=== PATIENT | female | born 1995 | race Caucasian/White ===

== ENCOUNTER 2016-09-12 20:29 | Emergency (ER) | payer MEDICAID ==
[2016-09-12 20:47] VITALS: BP 135/88
[2016-09-12] MEDS ORDERED: Sodium Chloride 0.9% 10 ML Syringe FLUSH PRN (21:48)
[2016-09-12] MEDS ORDERED: Sodium Chloride 0.9% 1,000 ML IV ONE (22:01)
--- NOTE | 2016-09-12 23:19 | EDM.PDOC ---
ED HPI GENERAL MEDICAL PROBLEM - General Chief Complaint: Abdominal Pain Stated Complaint: ABDOMINAL PAIN/POSS Time Seen by Provider: 09/12/16 21:23 Source of Information: Reports: Patient History Limitations: Reports: No Limitations - History of Present Illness INITIAL COMMENTS - FREE TEXT/NARRATIVE: 21-year-old female presents for evaluation treatment of abdominal pain. Patient reports that the abdominal pain started wednesday around 3pm. She states that there has been a constant pain since it started. She has trouble describing the pain. Reports it is an 8 out of 10 at its worst. Reports associated symptoms of nausea and a decreased appetite. She also reports that she struggles with constipation. Her last bowel movement was several hours prior to arrival in the ER. She states that it was hard to pass. No fevers, chills, vomiting, dysuria, hematuria, melena or hematochezia. Patient is also concerned that she is . She reports her last menstrual period was about one month ago. She states that she took 5 at home test. She had 2 positive urine test and 3 negative urine test. She is a . Her child is about 1-year-old. Patient states that she has a very irregular menstrual cycle. Abdomen Pain Score (Numeric/FACES): 5 - Related Data Allergies Allergy/AdvReac Type Severity Reaction Status Date / Time levetiracetam Allergy Intermediate Dizziness Verified 09/12/16 20:47 oxcarbazepine Allergy Cannot Verified 09/12/16 20:47 Remember Home Meds: Home Meds . 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 Denies: Fever GI/Abdominal: Reports: Abdominal Pain (across the upper abdomen radiating down) , Constipation, Nausea. Denies: Diarrhea, Hematochezia, Melena, Vomiting : Reports: No Symptoms, Irregular Menses. Denies: Dysuria, Hematuria ED EXAM, GI/ABD - Physical Exam Exam: See Below Exam Limited By: No Limitations General Appearance: Alert, WD/WN, No Apparent Distress Respiratory/Chest: No Respiratory Distress, Lungs Clear, Normal Breath Sounds Cardiovascular: Normal Peripheral Pulses, Regular Rate, Rhythm, No Murmur GI/Abdominal: Normal Bowel Sounds, Soft, Tenderness (generalized), Distention, Obturator Sign, Other (no pain with heel percussion). No: Guarding, Rebound, Rigidity, McBurney's Sign, Psoas Sign Neurological: Alert, Oriented, Normal Cognition Psychiatric: Normal Affect, Normal Mood Skin Exam: Warm, Dry, Normal Color Course - Vital Signs Last Recorded V/S: Last Vital Signs Temp 36.6 C 09/12/16 20:43 Pulse 109 H 09/12/16 20:43 Resp 16 09/12/16 20:43 BP 135/88 09/12/16 20:43 Pulse Ox 100 09/12/16 20:43 - Orders/Labs/Meds Labs: Laboratory Tests 09/12/16 09/12/16 09/12/16 Range/Units 20:45 20:45 22:06 WBC 11.33 H (3.98-10.04) K/mm3 RBC 5.12 (3.98-5.22) M/mm3 Hgb 13.9 (11.2-15.7) gm/L Hct 42.9 (34.1-44.9) % MCV 83.8 (79.4-94.8) fl MCH 27.1 (25.6-32.2) pg MCHC 32.4 (32.2-35.5) g/dl RDW Std Deviation 42.6 (36.4-46.3) fL Plt Count 354 (182-369) K/mm3 MPV 10.8 (9.4-12.3) fl Neutrophils % (Manual) 62 H (40-60) % Band Neutrophils % 0 (0-10) % Lymphocytes % (Manual) 27 (20-40) % Atypical Lymphs % 5 % Monocytes % (Manual) 6 (2-10) % Eosinophils % (Manual) 0 L (0.7-5.8) % Basophils % (Manual) 0 L (0.1-1.2) Platelet Estimate Adequate Plt Morphology Comment Normal Poikilocytosis 1+ slight Anisocytosis 1+ slight Tear Drop Cells 1+ slight RBC Morph Comment Abnormal Sodium (136-145) mEq/L Potassium (3.5-5.1) mEq/L Chloride (98-107) mEq/L Carbon Dioxide (21-32) mEq/L Anion Gap (5-15) BUN (7-18) mg/dL Creatinine (0.55-1.02) mg/dL Est Cr Clr Drug Dosing mL/min Estimated GFR (MDRD) (>60) mL/min BUN/Creatinine Ratio (14-18) Glucose (74-106) mg/dL Calcium (8.5-10.1) mg/dL Total Bilirubin (0.2-1.0) mg/dL AST (15-37) U/L ALT (14-59) U/L Alkaline Phosphatase (46-116) U/L C-Reactive Protein (<1.0) mg/dL Total Protein (6.4-8.2) g/dl Albumin (3.4-5.0) g/dl Globulin gm/dL Albumin/Globulin Ratio (1-2) Lipase (73-393) U/L HCG, Qual (NEGATIVE) Urine Color Yellow (Yellow) Urine Appearance Clear (Clear) Urine pH 5.5 (5.0-8.0) Ur Specific [place] > or = 1.030 (1.005-1.030) Urine Protein Negative (Negative) Urine Glucose (UA) Negative (Negative) Urine Ketones Negative (Negative) Urine Occult Blood 2+ H (Negative) Urine Nitrite Negative (Negative) Urine Bilirubin Negative (Negative) Urine Urobilinogen 0.2 (0.2-1.0) Ur Leukocyte Esterase Negative (Negative) Urine RBC 0-5 (0-5) /hpf Urine WBC 0-5 (0-5) /hpf Ur Epithelial Cells 10-20 H (0-5) /hpf Urine Bacteria Few (FEW) /hpf Urine Mucus Few (FEW) /hpf Urine HCG, Qual Negative (NEGATIVE) 09/12/16 09/12/16 Range/Units 22:06 22:06 WBC (3.98-10.04) K/mm3 RBC (3.98-5.22) M/mm3 Hgb (11.2-15.7) gm/L Hct (34.1-44.9) % MCV (79.4-94.8) fl MCH (25.6-32.2) pg MCHC (32.2-35.5) g/dl RDW Std Deviation (36.4-46.3) fL Plt Count (182-369) K/mm3 MPV (9.4-12.3) fl Neutrophils % (Manual) (40-60) % Band Neutrophils % (0-10) % Lymphocytes % (Manual) (20-40) % Atypical Lymphs % % Monocytes % (Manual) (2-10) % Eosinophils % (Manual) (0.7-5.8) % Basophils % (Manual) (0.1-1.2) Platelet Estimate Plt Morphology Comment Poikilocytosis Anisocytosis Tear Drop Cells RBC Morph Comment Sodium 141 (136-145) mEq/L Potassium 3.5 (3.5-5.1) mEq/L Chloride 105 (98-107) mEq/L Carbon Dioxide 29 (21-32) mEq/L Anion Gap 10.5 (5-15) BUN 11 (7-18) mg/dL Creatinine 0.9 (0.55-1.02) mg/dL Est Cr Clr Drug Dosing 88.97 mL/min Estimated GFR (MDRD) > 60 (>60) mL/min BUN/Creatinine Ratio 12.2 L (14-18) Glucose 83 (74-106) mg/dL Calcium 9.4 (8.5-10.1) mg/dL Total Bilirubin 0.3 (0.2-1.0) mg/dL AST 14 L (15-37) U/L ALT 20 (14-59) U/L Alkaline Phosphatase 81 (46-116) U/L C-Reactive Protein < 0.2 (<1.0) mg/dL Total Protein 8.4 H (6.4-8.2) g/dl Albumin 4.5 (3.4-5.0) g/dl Globulin 3.9 gm/dL Albumin/Globulin Ratio 1.2 (1-2) Lipase 94 (73-393) U/L HCG, Qual Negative (NEGATIVE) Urine Color (Yellow) Urine Appearance (Clear) Urine pH (5.0-8.0) Ur Specific [place] (1.005-1.030) Urine Protein (Negative) Urine Glucose (UA) (Negative) Urine Ketones (Negative) Urine Occult Blood (Negative) Urine Nitrite (Negative) Urine Bilirubin (Negative) Urine Urobilinogen (0.2-1.0) Ur Leukocyte Esterase (Negative) Urine RBC (0-5) /hpf Urine WBC (0-5) /hpf Ur Epithelial Cells (0-5) /hpf Urine Bacteria (FEW) /hpf Urine Mucus (FEW) /hpf Urine HCG, Qual (NEGATIVE) Meds: Medications Discontinued Medications Generic Name Dose Route Start Last Admin Trade Name Freq PRN Reason Stop Dose Admin Sodium Chloride 1,000 mls @ 999 mls/hr 09/12/16 22:01 09/12/16 22:26 Normal Saline IV 09/12/16 23:01 999 mls/hr ONETIME ONE Administration Ketorolac Tromethamine 30 mg 09/12/16 23:30 09/12/16 23:38 Toradol IVPUSH 09/12/16 23:31 30 mg ONETIME ONE Administration Ondansetron HCl 4 mg 09/12/16 23:30 09/12/16 23:37 Zofran IVPUSH 09/12/16 23:31 4 mg ONETIME ONE Administration Sodium Chloride 10 ml 09/12/16 21:48 09/12/16 22:27 Saline Flush FLUSH 10 ml ASDIRECTED PRN Administration Keep Vein Open - Radiology Interpretation Free Text/Narrative:: 1 view flat plate shows increased stool to the right colon. - Re-Assessments/Exams Free Text/Narrative Re-Assessment/Exam: 09/12/16 23:33 labs returned. Both urine and serum hcgs are negative wbc, mildly elevated at 11.33 with no bands, review of the patient's chart suggest she has a mildly elevated wbc chronically, hgb is 13.9 and plts are 359 CRP is <0.2 lipase is 94 sodium is 141, potassium is 3.5 and chloride is 105. anion gap is 10.5. glucos is 83 urine has 2+ blood I reviewed the labs and abdominal x-ray with the patient. Diagnoses likely is has constipation. Next The patient is laughing and appears quite comfortable Will discharge home with follow-up Discharge instructions as documented. Departure - Departure Time of Disposition: 23:36 Disposition: Home, Self-Care 01 Condition: Good Clinical Impression: Constipation - Discharge Information Instructions: Constipation, Adult, Swhi-wi-[id number] Referrals: La Ramirez PA-C [Primary Care Provider] - Zara Nguyễn DO [Physician] - Forms: ED Department Discharge Additional Instructions: Rest. make sure your are drinking plenty of fluids. [id number] Tylenol and Motrin as needed for pain relief. Recommend xsal-grg-[id number] MiraLAX daily or every other day for a normal soft bowel movements. He may also try magnesium citrate available in a 300 Ml bottle [id number]. Drink half the bottle over one hour. if you Do nothave a large bowel movement from half the bottle, may drink the second half about 12 hours later. Follow-up with your primary care provider this week for recheck of your symptoms. Call [phone] Nguyễn. Please return to the ER if your symptoms change or worsen.
[2016-09-12] MEDS ORDERED: Ketorolac 30 MG/ML SDV IVPUSH ONE (23:30)
[2016-09-12] MEDS ORDERED: Ondansetron 4 MG/2 ML SDV IVPUSH ONE (23:30)
--- NOTE | 2016-09-13 15:19 | CR ---
Abdomen: Supine view of the abdomen was obtained. Comparison: Previous abdominal x-ray of 11/18/11. Bony structures are within normal limits. Bowel gas pattern is normal. No abnormal calcifications or soft tissue abnormality is seen. Impression: 1. No abnormality is seen on supine abdominal x-ray. Diagnostic code #1
== END 2016-09-12 23:55 | disposition home or self-care (01) ==
LOC: JD.ED 20:29
DX: K59.00 Constipation, unspecified (principal); F17.210 Nicotine dependence, cigarettes, uncomplicated; Z88.8 Allergy status to other drugs, medicaments and biological substances; Z98.890 Other specified postprocedural states
CPT/HCPCS: 36415; 74000; 80053; 81001; 81025; 83690; 84703; 85025; 86140; 96361; 96374; 96375; 99284; J1885; J2405; J7040; J7050

== ENCOUNTER 2017-07-22 17:54 | Emergency (ER) | payer MEDICAID ==
[2017-07-22 18:18] VITALS: BP 109/72
[2017-07-22] MEDS ORDERED: Sodium Chloride 0.9% 10 ML Syringe FLUSH PRN (18:35)
[2017-07-22] MEDS ORDERED: Ketorolac 30 MG/ML SDV IVPUSH ONE (18:37)
[2017-07-22] MEDS ORDERED: Sodium Chloride 0.9% 1,000 ML IV ONE ×2 (18:37→21:19)
[2017-07-22] MEDS ORDERED: Ondansetron 4 MG/2 ML SDV IVPUSH ONE (21:19)
[2017-07-22] MEDS ORDERED: HYDROmorphone 0.5 MG/0.5 ML SYRINGE IVPUSH ONE (22:33)
--- NOTE | 2017-07-22 22:52 | EDM.PDOC ---
ED HPI GENERAL MEDICAL PROBLEM - General Chief Complaint: Abdominal Pain Stated Complaint: ABDOMAIN PAIN Time Seen by Provider: 07/22/17 18:51 Source of Information: Reports: Patient History Limitations: Reports: No Limitations - History of Present Illness INITIAL COMMENTS - FREE TEXT/NARRATIVE: 22-year-old female presents for evaluation and treatment of several different complaints. Patient reports pain to the bilateral thighs. States that this started 3-4 days ago. Reports associated weakness. No numbness or tingling to the legs. No pain or weakness to the lower legs. Patient reports that she was in softball last night. Her symptoms seemed to start prior that. Patient states when she was running the bases last night she became lightheaded and dizzy. No syncope. Patient is also complaining of pain Right flank. She states that it radiates into her back. Reports associated symptoms of nausea but no vomiting. She has not had any fevers. No dysuria. Reports increased urinary frequency. No hematuria Previous abdominal surgeries include a . Patient has been seen in the ER previously for constipation. Reports that her last bowel move yesterday. LMP was a few days ago. 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 Denies: Abdominal Pain, Vomiting : Reports: Flank Pain (Right), Frequency. Denies: Dysuria, Hematuria Musculoskeletal: Reports: Leg Pain (Bilateral thighs) Neurological: Reports: Difficulty Walking, Weakness. Denies: Numbness, Syncope , Tingling ED EXAM, RENAL/ - Physical Exam Exam: See Below Exam Limited By: No Limitations General Appearance: Alert, WD/WN, No Apparent Distress Respiratory/Chest: No Respiratory Distress, Lungs Clear, Normal Breath Sounds Cardiovascular: Normal Peripheral Pulses, Regular Rate, Rhythm, No Murmur GI/Abdominal: Normal Bowel Sounds, Soft, Non-Tender Back Exam: No: CVA Tenderness (L), CVA Tenderness (R) Extremities: Other (Reports tenderness to palpation to the bilateral thighs no obvious deformities.) Neurological: Alert, Oriented, Normal Cognition Psychiatric: Normal Affect, Normal Mood Skin Exam: Warm, Dry, Normal Color Course - Vital Signs Last Recorded V/S: Last Vital Signs Temp 36.9 C 07/22/17 18:16 Pulse 91 07/22/17 18:16 Resp 20 07/22/17 18:16 BP 109/72 07/22/17 18:16 Pulse Ox 100 07/22/17 18:16 Orthostatic Blood Pressure [ 106/78 Standing] Orthostatic Blood Pressure [ 100/75 Sitting] Orthostatic Blood Pressure [ 108/72 Supine] - Orders/Labs/Meds Orders: Active Orders 24 hr Category Date Time Status Orthostatic Vital Signs [RC] ASDIRECTED Care 07/22/17 18:35 Active Peripheral IV Care [RC] . DIRECTED Care 07/22/17 18:36 Active HCG QUALITATIVE,URINE [URCHEM] Stat Lab 07/22/17 19:00 Ordered UA W/MICROSCOPIC [URIN] Stat Lab 07/22/17 19:00 Ordered Peripheral IV Insertion Adult [OM.PC] Routine Oth 07/22/17 18:35 Ordered Labs: Laboratory Tests 07/22/17 07/22/17 07/22/17 Range/Units 18:45 18:45 18:45 WBC 12.16 H (3.98-10.04) K/mm3 RBC 5.07 (3.98-5.22) M/mm3 Hgb 14.1 (11.2-15.7) gm/L Hct 43.0 (34.1-44.9) % MCV 84.8 (79.4-94.8) fl MCH 27.8 (25.6-32.2) pg MCHC 32.8 (32.2-35.5) g/dl RDW Std Deviation 41.9 (36.4-46.3) fL Plt Count 387 H (182-369) K/mm3 MPV 10.6 (9.4-12.3) fl Neut % (Auto) 59.5 (34.0-71.1) % Lymph % (Auto) 33.4 (19.3-51.7) % Early % (Auto) 5.8 (4.7-12.5) % Eos % (Auto) 0.7 (0.7-5.8) Baso % (Auto) 0.4 (0.1-1.2) % Neut # (Auto) 7.23 H (1.56-6.13) K/mm3 Lymph # (Auto) 4.06 H (1.18-3.74) K/mm3 Early # (Auto) 0.70 H (0.24-0.36) K/mm3 Eos # (Auto) 0.09 (0.04-0.36) K/mm3 Baso # (Auto) 0.05 (0.01-0.08) K/mm3 Sodium 140 (136-145) mEq/L Potassium 3.6 (3.5-5.1) mEq/L Chloride 103 (98-107) mEq/L Carbon Dioxide 28 (21-32) mEq/L Anion Gap 12.6 (5-15) BUN 12 (7-18) mg/dL Creatinine 1.0 (0.55-1.02) mg/dL Est Cr Clr Drug Dosing 79.40 mL/min Estimated GFR (MDRD) > 60 (>60) mL/min BUN/Creatinine Ratio 12.0 L (14-18) Glucose 80 (74-106) mg/dL Calcium 9.3 (8.5-10.1) mg/dL Total Bilirubin 0.5 (0.2-1.0) mg/dL AST 111 H (15-37) U/L ALT 58 (14-59) U/L Alkaline Phosphatase 88 (46-116) U/L Creatine Kinase 4438 H (26-192) U/L C-Reactive Protein (<1.0) mg/dL Total Protein 8.6 H (6.4-8.2) g/dl Albumin 4.5 (3.4-5.0) g/dl Globulin 4.1 gm/dL Albumin/Globulin Ratio 1.1 (1-2) Lipase 71 L (73-393) U/L Urine Color (Yellow) Urine Appearance (Clear) Urine pH (5.0-8.0) Ur Specific [place] (1.005-1.030) Urine Protein (Negative) Urine Glucose (UA) (Negative) Urine Ketones (Negative) Urine Occult Blood (Negative) Urine Nitrite (Negative) Urine Bilirubin (Negative) Urine Urobilinogen (0.2-1.0) Ur Leukocyte Esterase (Negative) Urine RBC (0-5) /hpf Urine WBC (0-5) /hpf Ur Epithelial Cells (0-5) /hpf Urine Bacteria (FEW) /hpf Urine Mucus (FEW) /hpf Urine HCG, Qual (NEGATIVE) 07/22/17 07/22/17 07/22/17 Range/Units 18:45 19:00 19:00 WBC (3.98-10.04) K/mm3 RBC (3.98-5.22) M/mm3 Hgb (11.2-15.7) gm/L Hct (34.1-44.9) % MCV (79.4-94.8) fl MCH (25.6-32.2) pg MCHC (32.2-35.5) g/dl RDW Std Deviation (36.4-46.3) fL Plt Count (182-369) K/mm3 MPV (9.4-12.3) fl Neut % (Auto) (34.0-71.1) % Lymph % (Auto) (19.3-51.7) % Early % (Auto) (4.7-12.5) % Eos % (Auto) (0.7-5.8) Baso % (Auto) (0.1-1.2) % Neut # (Auto) (1.56-6.13) K/mm3 Lymph # (Auto) (1.18-3.74) K/mm3 Early # (Auto) (0.24-0.36) K/mm3 Eos # (Auto) (0.04-0.36) K/mm3 Baso # (Auto) (0.01-0.08) K/mm3 Sodium (136-145) mEq/L Potassium (3.5-5.1) mEq/L Chloride (98-107) mEq/L Carbon Dioxide (21-32) mEq/L Anion Gap (5-15) BUN (7-18) mg/dL Creatinine (0.55-1.02) mg/dL Est Cr Clr Drug Dosing mL/min Estimated GFR (MDRD) (>60) mL/min BUN/Creatinine Ratio (14-18) Glucose (74-106) mg/dL Calcium (8.5-10.1) mg/dL Total Bilirubin (0.2-1.0) mg/dL AST (15-37) U/L ALT (14-59) U/L Alkaline Phosphatase (46-116) U/L Creatine Kinase (26-192) U/L C-Reactive Protein < 0.2 (<1.0) mg/dL Total Protein (6.4-8.2) g/dl Albumin (3.4-5.0) g/dl Globulin gm/dL Albumin/Globulin Ratio (1-2) Lipase (73-393) U/L Urine Color Yellow (Yellow) Urine Appearance Clear (Clear) Urine pH 7.5 (5.0-8.0) Ur Specific [place] 1.020 (1.005-1.030) Urine Protein Negative (Negative) Urine Glucose (UA) Negative (Negative) Urine Ketones Negative (Negative) Urine Occult Blood 2+ H (Negative) Urine Nitrite Negative (Negative) Urine Bilirubin Negative (Negative) Urine Urobilinogen 0.2 (0.2-1.0) Ur Leukocyte Esterase Negative (Negative) Urine RBC 0-5 (0-5) /hpf Urine WBC 5-10 H (0-5) /hpf Ur Epithelial Cells 10-20 H (0-5) /hpf Urine Bacteria Few (FEW) /hpf Urine Mucus Not seen (FEW) /hpf Urine HCG, Qual Negative (NEGATIVE) Meds: Medications Discontinued Medications Generic Name Dose Route Start Last Admin Trade Name Freq PRN Reason Stop Dose Admin Hydromorphone HCl 0.5 mg 07/22/17 22:33 07/22/17 23:09 Dilaudid IVPUSH 07/22/17 22:34 0.5 mg ONETIME ONE Administration Sodium Chloride 1,000 mls @ 999 mls/hr 07/22/17 18:37 07/22/17 18:45 Normal Saline IV 07/22/17 19:37 999 mls/hr ONETIME ONE Administration Sodium Chloride 1,000 mls @ 999 mls/hr 07/22/17 21:19 07/22/17 21:26 Normal Saline IV 07/22/17 22:19 999 mls/hr ONETIME ONE Administration Ketorolac Tromethamine 30 mg 07/22/17 18:37 07/22/17 18:45 Toradol IVPUSH 07/22/17 18:38 30 mg ONETIME ONE Administration Ondansetron HCl 4 mg 07/22/17 21:19 07/22/17 21:26 Zofran IVPUSH 07/22/17 21:20 4 mg ONETIME ONE Administration Sodium Chloride 10 ml 07/22/17 18:35 07/22/17 18:45 Saline Flush FLUSH 10 ml ASDIRECTED PRN Administration Keep Vein Open - Radiology Interpretation Free Text/Narrative:: CT of the abdomen and pelvis without contrast impression per vrad: Normal abdomen and pelvis CT. CT Results Date: 07/23/17 - Re-Assessments/Exams Free Text/Narrative Re-Assessment/Exam: 07/23/17 00:44 Patient reported no pain relief with the Toradol. I order some Dilaudid which seemed to improve her pain somewhat made her rather loopy. When I went to initially discharge the patient she was complaining more of flank pain. Initially attributed this To the rhabdo. However, is possible that she does have a kidney stone. When ahead and CTed the patient. No stone appreciated. Appendix not show any signs of appendicitis. Gallbladder do not show any gallstones. There are amount of stool appreciated on the right side of the colon. Abdominal pain likely from constipation. I Do not feel that she needs to be admitted that she does need close follow-up and needs to push her fluids. I will give her something for her pain in the meantime. She is to follow up in clinic early next week to have her levels including kidney function and creatinine kinase rechecked. Discharge instructions as documented. Departure - Departure Time of Disposition: 00:49 Disposition: Home, Self-Care 01 Condition: Fair Clinical Impression: Abdominal pain, Constipation, Rhabdomyolysis - Discharge Information Instructions: Rhabdomyolysis, Constipation, Adult, [id number] Referrals: PCP,None [Primary Care Provider] - Fina Bell, COMPLIANCE PROFESSIONAL [Nurse Practitioner] - Forms: ED Department Discharge Additional Instructions: percocet 5-325 tabs 1-2 tabs PO every 4-6 hours prn pain make sure you are drinking plenty of fluids. Drink Gatorade, water or Powerade. Cjov-[id number] Tylenol or Motrin seen for pain relief. For pain not relieved by Tylenol or Motrin you may take Percocet 1 or 2 tabs every 4-6 hours. Percocet is habit-forming, take as few these as needed to control your pain. Do not drive or operate machinery within 12 hours of receiving prescription narcotic pain medication. you were given medication in the ER that can affect your ability drive and operate machinery. Do not drive or operate machinery within 12 hours of taking perception narcotic pain medication. Follow up with family medicine later this week or early next week for recheck of your symptoms. you should have your creatinine kinase and your kidney function rechecked. Recommend using MiraLAX daily, this is available [id number]. This will help with the constipation lucy while on narcotics. Also consider starting a probiotic, these are available OTC. Please return to the ER if your symptoms change or worsen. - My Orders Last 24 Hours: My Active Orders 07/22/17 18:35 Orthostatic Vital Signs [RC] ASDIRECTED Peripheral IV Insertion Adult [OM.PC] Routine 07/22/17 18:36 Peripheral IV Care [RC] . DIRECTED 07/22/17 19:00 HCG QUALITATIVE,URINE [URCHEM] Stat UA W/MICROSCOPIC [URIN] Stat - Assessment/Plan Last 24 Hours: My Active Orders 07/22/17 18:35 Orthostatic Vital Signs [RC] ASDIRECTED Peripheral IV Insertion Adult [OM.PC] Routine 07/22/17 18:36 Peripheral IV Care [RC] . DIRECTED 07/22/17 19:00 HCG QUALITATIVE,URINE [URCHEM] Stat UA W/MICROSCOPIC [URIN] Stat
--- NOTE | 2017-07-23 09:23 | CT ---
CT abdomen and pelvis Technique: Multiple axial sections were obtained from above the dome of the diaphragm inferiorly to the pubic symphysis. Intravenous and oral contrast was not utilized. Study has been performed as a ureteral stone protocol. Comparison: Prior CT abdomen and pelvis study of 09/15/13 is available for comparison. Findings: Kidneys show no abnormal calcifications. No ureteral dilatation is seen. No abnormal calcifications are seen along the course of the ureters. Minimal atelectasis seen within both lung bases. Noncontrast appearance of the liver and spleen appears within normal limits. Adrenal glands show no discrete nodule. Pancreas is within normal limits. Gallbladder contains no calcified gallstones. Aorta shows no aneurysmal dilatation. No retroperitoneal adenopathy is seen. Appendix is seen which appears within normal limits. No pelvic mass or adenopathy is seen. No free fluid or inflammatory change is seen. Bone window settings were reviewed which appear within normal limits for the patient's age. Impression: 1. No renal calculi, ureteral dilatation or ureteral stone is seen. 2. Nothing acute is appreciated on noncontrast CT study of the abdomen and pelvis performed as a ureteral stone protocol. Diagnostic code #1 I agree with preliminary report from [facility], finalized at 07/23/17, 1:36 AM Central Time
== END 2017-07-23 01:00 | disposition home or self-care (01) ==
LOC: JD.ED 17:54
DX: K59.00 Constipation, unspecified (principal); M62.82 Rhabdomyolysis; F17.210 Nicotine dependence, cigarettes, uncomplicated; Z88.8 Allergy status to other drugs, medicaments and biological substances
CPT/HCPCS: 36415; 74176; 80053; 81001; 81025; 82550; 83690; 85025; 86140; 96361; 96374; 96375; 99284; J1170; J1885; J2405; J7040; J7050

== ENCOUNTER 2019-07-15 10:53 | Emergency (ER) | payer MEDICAID ==
[2019-07-15 11:06] VITALS: BP 126/88; PULSE 111
[2019-07-15] MEDS ORDERED: HYDROmorphone 1 MG/ML Syringe IVPUSH STA (11:22)
[2019-07-15] MEDS ORDERED: Ondansetron 4 MG/2 ML SDV IVPUSH ONE (11:22)
--- NOTE | 2019-07-15 11:29 | EDM.PDOC ---
ED HPI GENERAL MEDICAL PROBLEM - General Chief Complaint: Abdominal Pain Stated Complaint: ADBOMAIL PAIN Time Seen by Provider: 07/15/19 11:06 Source of Information: Reports: Patient, RN Notes Reviewed History Limitations: Reports: No Limitations - History of Present Illness INITIAL COMMENTS - FREE TEXT/NARRATIVE: Patient is a 24-year-old female who presents to the ED for the evaluation of her lower abdominal pain. Patient states that she has been having lower abdominal pain over the last 2 weeks, but the pain is mostly on the right lower quadrant, and states that she does have a history of ovarian cyst so she thought this was the case. She states however the pain is been increasing, and she cannot lay on her stomach while sleeping, and she states that the pain did radiate up into her chest today. She does complain of some generalized abdomen tenderness, but it is much worse in the right lower quadrant. Patient states that she could not bend or do much for activities yesterday as the pain was too intense. She is complaining of this being a sharp/stabbing pain, that is constant in nature and worsens with movement. Patient notes she is having little bit of nausea and lightheadedness, also she states that the thought of food makes her nauseous, but she denies any fever/chills, vomiting or diarrhea. Her last regular bowel movement was yesterday. She believes her last menstrual period was around July 03 or . She does not believe she could be as she has had a negative test since her last menses. Patient did not take any sort of pain medications at home for this. She notes that her father has a history of gallstones, the patient herself has had C- sections but denies any other sort of abdomen surgeries. She further notes a history of seizures that she had when she was younger, but she is not medicated for this at this time and has not had a seizure in over 10 years. She has no primary care provider, she is not on any regular medications. She denies alcohol or drug use, but does smoke cigarettes, and has been smoking about 1/4 pack a day for the last 7 years. - Related Data Allergies Allergy/AdvReac Type Severity Reaction Status Date / Time levetiracetam Allergy Intermediate Dizziness Verified 07/15/19 11:07 oxcarbazepine Allergy Cannot Verified 07/15/19 11:07 Remember Home Meds: Home Meds Ondansetron [Zofran ODT] 4 mg PO Q8H PRN #12 tab.dis 07/15/19 [Rx] predniSONE 20 mg PO ASDIRECTED #15 tab 07/15/19 [Rx] Past Medical History [employer] History: Reports: , Other (See Below) Other [employer] History: Ovarian cysts w/ rupture in 2019. Neurological History: Reports: Seizure Other Neuro History: off medication since 2009 Psychiatric History: Reports: Anxiety - Infectious Disease History Infectious Disease History: Reports: Chicken Pox, Human Papilloma Virus (HPV) - Past Surgical History HEENT Surgical History: Reports: Tonsillectomy Female Surgical History: Reports: Section Social & Family History - Family History Family Medical History: Noncontributory - Tobacco Use Smoking Status *Q: Light Tobacco Smoker Tobacco Use Within Last Twelve Months: Cigarettes Years of Tobacco use: 7 Packs/Tins Daily: 0.2 (1/4 pack /day) - Caffeine Use Caffeine Use: Reports: Coffee - Alcohol Use Alcohol Use History: No - Recreational Drug Use Recreational Drug Use: No - Sexual History Sexual History: Reports: Sexually Active ED ROS GENERAL - Review of Systems Review Of Systems: Comprehensive ROS is negative, except as noted in HPI. ED EXAM, GI/ABD - Physical Exam Exam: See Below Exam Limited By: No Limitations General Appearance: Alert, WD/WN, No Apparent Distress Eyes: Bilateral: Normal Appearance Ears: Normal External Exam Nose: Normal Inspection Throat/Mouth: Normal Inspection, Normal Lips, Normal Teeth, Normal Gums, Normal Oropharynx, Normal Voice, No Airway Compromise Head: Atraumatic, Normocephalic Neck: Normal Inspection Respiratory/Chest: No Respiratory Distress, Lungs Clear, Normal Breath Sounds, No Accessory Muscle Use, Chest Non-Tender Cardiovascular: Normal Peripheral Pulses, Regular Rate, Rhythm, No Murmur GI/Abdominal Exam: Normal Bowel Sounds, Soft, No Distention, No Mass, Tender ( generalized, but worse over RLQ mainly, McBurney is positive, and does have some rebound associated) (Female) Exam: Deferred Extremities: Normal Inspection, Normal Capillary Refill Neurological: Alert, Oriented, Normal Cognition, No Motor/Sensory Deficits Psychiatric: Normal Affect, Normal Mood Skin Exam: Warm, Dry, Intact, Normal Color, No Rash Course - Vital Signs Last Recorded V/S: Last Vital Signs Temp 97.5 F 07/15/19 11:03 Pulse 111 H 07/15/19 11:03 Resp 16 07/15/19 11:03 BP 126/88 07/15/19 11:03 Pulse Ox 99 07/15/19 11:03 - Orders/Labs/Meds Orders: Active Orders 24 hr Category Date Time Status Abdomen Pelvis w Cont [CT] Stat Exams 07/15/19 13:02 Ordered Sodium Chloride 0.9% [Normal Saline] 1,000 ml Med 07/15/19 11:30 Ordered IV ASDIRECTED Sodium Chloride 0.9% [Saline Flush] Med 07/15/19 13:55 Active 10 ml FLUSH ONETIME PRN Medication Orders Sodium Chloride (Normal Saline) 1,000 mls @ 500 mls/hr IV ASDIRECTED MICHAEL Last Admin: 07/15/19 11:37 Dose: 500 mls/hr Sodium Chloride (Saline Flush) 10 ml FLUSH ONETIME PRN PRN Reason: Keep Vein Open Last Admin: 07/15/19 14:05 Dose: 10 ml Labs: Laboratory Tests 07/15/19 07/15/19 07/15/19 Range/Units 11:24 11:24 11:40 WBC 7.37 (3.98-10.04) K/mm3 RBC 5.04 (3.98-5.22) M/mm3 Hgb 14.2 (11.2-15.7) gm/dl Hct 44.1 (34.1-44.9) % MCV 87.5 (79.4-94.8) fl MCH 28.2 (25.6-32.2) pg MCHC 32.2 (32.2-35.5) g/dl RDW Std Deviation 44.0 (36.4-46.3) fL Plt Count 367 (182-369) K/mm3 MPV 10.7 (9.4-12.3) fl Neutrophils % (Manual) 66 H (40-60) % Band Neutrophils % 0 (0-10) % Lymphocytes % (Manual) 31 (20-40) % Atypical Lymphs % 0 % Monocytes % (Manual) 0 L (2-10) % Eosinophils % (Manual) 3 (0.7-5.8) % Basophils % (Manual) 0 L (0.1-1.2) Platelet Estimate Adequate Plt Morphology Comment Normal RBC Morph Comment Normal Sodium (136-145) mEq/L Potassium (3.5-5.1) mEq/L Chloride (98-107) mEq/L Carbon Dioxide (21-32) mEq/L Anion Gap (5-15) BUN (7-18) mg/dL Creatinine (0.55-1.02) mg/dL Est Cr Clr Drug Dosing mL/min Estimated GFR (MDRD) (>60) mL/min BUN/Creatinine Ratio (14-18) Glucose (74-106) mg/dL Calcium (8.5-10.1) mg/dL Total Bilirubin (0.2-1.0) mg/dL AST (15-37) U/L ALT (14-59) U/L Alkaline Phosphatase (46-116) U/L Total Protein (6.4-8.2) g/dl Albumin (3.4-5.0) g/dl Globulin gm/dL Albumin/Globulin Ratio (1-2) Urine Color Yellow (Yellow) Urine Appearance Clear (Clear) Urine pH 7.5 (5.0-8.0) Ur Specific [place] 1.020 (1.005-1.030) Urine Protein Trace H (Negative) Urine Glucose (UA) Negative (Negative) Urine Ketones Negative (Negative) Urine Occult Blood Negative (Negative) Urine Nitrite Negative (Negative) Urine Bilirubin Negative (Negative) Urine Urobilinogen 0.2 (0.2-1.0) Ur Leukocyte Esterase Negative (Negative) Urine RBC 0-5 (0-5) /hpf Urine WBC 0-5 (0-5) /hpf Ur Epithelial Cells 0-5 (0-5) /hpf Amorphous Sediment Moderate H (NOT SEEN) /hpf Urine Bacteria Few (FEW) /hpf Urine Mucus Not seen (FEW) /hpf Urine HCG, Qual Negative (NEGATIVE) 07/15/19 Range/Units 11:40 WBC (3.98-10.04) K/mm3 RBC (3.98-5.22) M/mm3 Hgb (11.2-15.7) gm/dl Hct (34.1-44.9) % MCV (79.4-94.8) fl MCH (25.6-32.2) pg MCHC (32.2-35.5) g/dl RDW Std Deviation (36.4-46.3) fL Plt Count (182-369) K/mm3 MPV (9.4-12.3) fl Neutrophils % (Manual) (40-60) % Band Neutrophils % (0-10) % Lymphocytes % (Manual) (20-40) % Atypical Lymphs % % Monocytes % (Manual) (2-10) % Eosinophils % (Manual) (0.7-5.8) % Basophils % (Manual) (0.1-1.2) Platelet Estimate Plt Morphology Comment RBC Morph Comment Sodium 143 (136-145) mEq/L Potassium 3.8 (3.5-5.1) mEq/L Chloride 106 (98-107) mEq/L Carbon Dioxide 29 (21-32) mEq/L Anion Gap 11.8 (5-15) BUN 10 (7-18) mg/dL Creatinine 0.9 (0.55-1.02) mg/dL Est Cr Clr Drug Dosing 86.73 mL/min Estimated GFR (MDRD) > 60 (>60) mL/min BUN/Creatinine Ratio 11.1 L (14-18) Glucose 115 H (74-106) mg/dL Calcium 9.0 (8.5-10.1) mg/dL Total Bilirubin 0.2 (0.2-1.0) mg/dL AST 13 L (15-37) U/L ALT 25 (14-59) U/L Alkaline Phosphatase 66 (46-116) U/L Total Protein 7.3 (6.4-8.2) g/dl Albumin 3.7 (3.4-5.0) g/dl Globulin 3.6 gm/dL Albumin/Globulin Ratio 1.0 (1-2) Urine Color (Yellow) Urine Appearance (Clear) Urine pH (5.0-8.0) Ur Specific [place] (1.005-1.030) Urine Protein (Negative) Urine Glucose (UA) (Negative) Urine Ketones (Negative) Urine Occult Blood (Negative) Urine Nitrite (Negative) Urine Bilirubin (Negative) Urine Urobilinogen (0.2-1.0) Ur Leukocyte Esterase (Negative) Urine RBC (0-5) /hpf Urine WBC (0-5) /hpf Ur Epithelial Cells (0-5) /hpf Amorphous Sediment (NOT SEEN) /hpf Urine Bacteria (FEW) /hpf Urine Mucus (FEW) /hpf Urine HCG, Qual (NEGATIVE) Meds: Medications Generic Name Dose Route Start Last Admin Trade Name Freq PRN Reason Stop Dose Admin Sodium Chloride 1,000 mls @ 500 mls/hr 07/15/19 11:30 07/15/19 11:37 Normal Saline IV 500 mls/hr ASDIRECTED MICHAEL Administration Sodium Chloride 10 ml 07/15/19 13:55 07/15/19 14:05 Saline Flush FLUSH 10 ml ONETIME PRN Administration Keep Vein Open Discontinued Medications Generic Name Dose Route Start Last Admin Trade Name Freq PRN Reason Stop Dose Admin Hydromorphone HCl 1 mg 07/15/19 11:22 07/15/19 11:36 Dilaudid IVPUSH 07/15/19 11:23 1 mg ONETIME STA Administration Iopamidol 100 ml 07/15/19 13:55 07/15/19 14:05 Isovue-300 (61%) IVPUSH 07/15/19 13:56 100 ml ONETIME ONE Administration Ondansetron HCl 4 mg 07/15/19 11:22 07/15/19 11:36 Zofran IVPUSH 07/15/19 11:23 4 mg ONETIME ONE Administration - Re-Assessments/Exams Free Text/Narrative Re-Assessment/Exam: 07/15/19 11:31 Patient presents to the ED for the evaluation of her abdominal pain. Have ordered some basic labs, Zofran for nausea, Dilaudid for pain management, and an abdomen ultrasound for initial investigation of the patient's abdomen pain if she would like to try to limit radiation exposure as much as possible. She does have a history of ovarian cysts I think this is amenable at initial exam. She is not in any obvious distress or does not appear to be toxic looking. 07/15/19 13:03 Patient's abdomen ultrasound is back, right ovary appears within normal limits, and the appendix is not definitely visualized. There is no other free fluid seen. I have went over the results with the patient, and she would like to go forward with a abdomen pelvis CT at this time to rule out appendicitis. 07/15/19 14:34 The patient appendix was well seen on the CT and is well within normal limits. There is no sign of an ovarian cyst. But there is possible mild mesenteric adenitis reported. Departure - Departure Time of Disposition: 14:40 Disposition: Home, Self-Care 01 Condition: Good Clinical Impression: Mesenteric adenitis - Discharge Information *PRESCRIPTION DRUG MONITORING PROGRAM REVIEWED*: No *COPY OF PRESCRIPTION DRUG MONITORING REPORT IN PATIENT BÁRBARA: No Instructions: Mesenteric Adenitis, Adult Referrals: PCP,None [Primary Care Provider] - Forms: ED Department Discharge Additional Instructions: You were evaluated in the ER today regarding your right lower quadrant abdominal pain. You had an abdominal ultrasound and an abdominal CT done, you do not have appendicitis or any ovarian cysts at today's visit, rather you are suffering from mesenteric adenitis, which is an inflammation of the lymph nodes in your right lower quadrant, that mimics the feelings of appendicitis quite well. As stated above this is an inflammatory response, and you will need to take some sort of anti-inflammatory for management of this. You have been provided with a prescription for prednisone, which is an anti-inflammatory or steroid. Please take as directed for the full course. All of your other laboratory evaluation seems to be within normal limits. You will also be given a prescription for Zofran for your mild nausea that you reported. Please try to increase your oral fluid intake as much as possible over the next few days, get some rest and you should feel better soon. Please return to the ER at any time if symptoms change or worsen. Sepsis Event Note - Evaluation Sepsis Screening Result: No Definite Risk - Focused Exam Vital Signs: Vital Signs Temp Pulse Resp BP Pulse Ox 07/15/19 11:03 97.5 F 111 H 16 126/88 99 Date Exam was Performed: 07/15/19 Time Exam was Performed: 14:40 - My Orders Last 24 Hours: My Active Orders 07/15/19 11:30 Sodium Chloride 0.9% [Normal Saline] 1,000 ml IV ASDIRECTED 07/15/19 13:02 Abdomen Pelvis w Cont [CT] Stat 07/15/19 13:55 Sodium Chloride 0.9% [Saline Flush] 10 ml FLUSH ONETIME PRN - Assessment/Plan Last 24 Hours: My Active Orders 07/15/19 11:30 Sodium Chloride 0.9% [Normal Saline] 1,000 ml IV ASDIRECTED 07/15/19 13:02 Abdomen Pelvis w Cont [CT] Stat 07/15/19 13:55 Sodium Chloride 0.9% [Saline Flush] 10 ml FLUSH ONETIME PRN
[2019-07-15] MEDS ORDERED: Sodium Chloride 0.9% 1,000 ML IV SCH (11:30)
--- NOTE | 2019-07-15 12:57 | US ---
Limited abdominal ultrasound: Multiple real-time images were obtained of the right lower abdomen. Right ovary appears within normal limits. Appendix is not definitely visualized. No free fluid is seen. Impression: 1. Findings as noted above. Diagnostic code #1 This report was dictated in MDT
[2019-07-15] MEDS ORDERED: Sodium Chloride 0.9% 10 ML Syringe FLUSH PRN (13:55)
[2019-07-15] MEDS ORDERED: Iopamidol 612 MG/ML 100 ML Bottle IVPUSH ONE (13:55)
--- NOTE | 2019-07-15 16:03 | CT ---
CT abdomen and pelvis Technique: Multiple axial sections were obtained from above the dome of the diaphragm inferiorly through the pubic symphysis. Intravenous contrast was utilized. No oral contrast has been given. Comparison: Prior right upper quadrant abdominal ultrasound performed earlier on the same day (12:22 PM) and previous CT abdomen and pelvis study of 12/17/17. Findings: Visualized lung bases show nothing acute. Liver contains no focal parenchymal abnormality. Spleen appears normal limits. Adrenal glands show no nodule. Kidneys show symmetric contrast enhancement without hydronephrosis or mass. Pancreas appears normal. Gallbladder contains no calcified gallstones. Aorta shows no aneurysm. No retroperitoneal adenopathy is seen. Stable lymph nodes are noted within the right lower mesentery. Appendix is seen which is normal in size. No pelvic mass or adenopathy is seen. Delayed images shows contrast within the distal ureters and within the bladder. Bone window settings were reviewed which appear within normal limits for the patient's age. Impression: 1. Small mesenteric lymph nodes within the right lower abdomen which are similar to prior CT exam. 2. Appendix is seen which is normal. 3. Other portions of the CT exam of the abdomen and pelvis show nothing acute. Diagnostic code #2 This report was dictated in MDT I agree with preliminary report from [facility], finalized on 07/15/19, 3:24 PM Central Daylight Time
== END 2019-07-15 14:56 | disposition home or self-care (01) ==
LOC: JD.ED 10:53
DX: I88.0 Nonspecific mesenteric lymphadenitis (principal); F17.210 Nicotine dependence, cigarettes, uncomplicated; Z88.8 Allergy status to other drugs, medicaments and biological substances
CPT/HCPCS: 36415; 74177; 76705; 80053; 81001; 81025; 85007; 85027; 96374; 96375; 99284; J1170; J2405; J7030; Q9967; 99283

== ENCOUNTER 2019-09-23 14:04 | Emergency (ER) | payer MEDICAID ==
[2019-09-23 14:28] VITALS: BP 109/65; PULSE 78
--- NOTE | 2019-09-23 18:26 | US ---
1st trimester obstetrical ultrasound: Multiple real-time images were obtained transvaginally. Comparison: No previous study. Findings: Small gestational sac is seen which shows no pole or yolk sac at this time. Minimal subchorionic hemorrhage noted. Ovaries are seen. No discrete cyst or solid abnormality is appreciated. No free fluid is seen. Measurements: Gestational sac: 1.12 cm - 5 weeks 2 days Impression: 1. Single intrauterine gestational sac. No pole or yolk sac is seen. 2. No additional abnormality is appreciated. Note: Recommend follow-up study in 11 days to confirm normal developing . Diagnostic code #2 This report was dictated in MDT
--- NOTE | 2019-09-23 18:30 | US ---
Limited abdominal ultrasound: Multiple real-time images of the right lower abdomen were obtained. Comparison: Previous right lower quadrant abdominal ultrasound of . Nonspecific bowel is seen within the right lower abdomen. This does not appear to represent definite appendix. No free fluid is seen. No additional abnormality is seen. Impression: 1. Nonspecific loop of bowel within the right lower abdomen. 2. No definite appendix is seen. Diagnostic code #2 This report was dictated in MDT
--- NOTE | 2019-09-23 19:16 | EDM.PDOC ---
ED HPI GENERAL MEDICAL PROBLEM - General Chief Complaint: Abdominal Pain Stated Complaint: LOWER RT PELVIC PAIN Time Seen by Provider: 09/23/19 15:59 Source of Information: Reports: Patient History Limitations: Reports: No Limitations - History of Present Illness INITIAL COMMENTS - FREE TEXT/NARRATIVE: Patient is a 24-year-old female who presents to the emergency department with complaints of a two-week history of intermittent right-sided low pelvic pain. States she has had pain similar to this in the past. She was seen in this emergency department and diagnosed with mesenteric adenitis. She states that this pain is much more mild than that episode was. Of note, patient is approximately 6 weeks . She has had no vaginal bleeding or spotting. No abnormal discharge. Denies any dysuria. She has had no nausea, vomiting, or diarrhea. Denies any fever or chills. Right Lower Abdomen Pain Score (Numeric/FACES): 3 - Related Data Allergies Allergy/AdvReac Type Severity Reaction Status Date / Time levetiracetam Allergy Severe Dizziness Verified 09/23/19 14:22 oxcarbazepine Allergy Severe Cannot Verified 09/23/19 14:22 Remember Home Meds: Home Meds Ondansetron [Zofran ODT] 4 mg PO Q8H PRN #12 tab.dis 07/15/19 [Rx] No122/Iron/Folic Acid [ Multi Tablet] 1 tab PO DAILY 09/23/19 [History] Past Medical History - Past Health History Medical/Surgical History: Denies Medical/Surgical History SALES FLOOR MANAGER History: Reports: , Other (See Below) Other SALES FLOOR MANAGER History: Ovarian cysts w/ rupture in 2019. Neurological History: Reports: Seizure Other Neuro History: off medication since 2009 Psychiatric History: Reports: Anxiety - Infectious Disease History Infectious Disease History: Reports: Chicken Pox, Human Papilloma Virus (HPV) - Past Surgical History HEENT Surgical History: Reports: Tonsillectomy Female Surgical History: Reports: Section Social & Family History - Family History Family Medical History: Noncontributory - Tobacco Use Smoking Status *Q: Never Smoker - Caffeine Use Caffeine Use: Reports: Coffee - Recreational Drug Use Recreational Drug Use: No - Sexual History Sexual History: Reports: Sexually Active ED ROS GENERAL - Review of Systems Review Of Systems: See Below Constitutional: Reports: No Symptoms. Denies: Fever, Chills, Decreased Appetite HEENT: Reports: No Symptoms Respiratory: Reports: No Symptoms Cardiovascular: Reports: No Symptoms Endocrine: Reports: No Symptoms GI/Abdominal: Denies: Diarrhea, Nausea, Vomiting : Reports: Other (Intermittent right low pelvic pain. No vaginal bleeding or spotting.). Denies: Dysuria, Flank Pain, Frequency Musculoskeletal: Reports: No Symptoms Skin: Reports: No Symptoms Neurological: Reports: No Symptoms Psychiatric: Reports: No Symptoms Hematologic/Lymphatic: Reports: No Symptoms Immunologic: Reports: No Symptoms ED EXAM, GI/ABD - Physical Exam Exam: See Below Exam Limited By: No Limitations General Appearance: Alert, WD/WN, No Apparent Distress Respiratory/Chest: No Respiratory Distress, Lungs Clear, Normal Breath Sounds, No Accessory Muscle Use, Chest Non-Tender Cardiovascular: Normal Peripheral Pulses, Regular Rate, Rhythm, No Edema, No Gallop, No JVD, No Murmur, No Rub GI/Abdominal Exam: Normal Bowel Sounds, Soft, No Organomegaly, No Distention, No Abnormal Bruit, No Mass, Pelvis Stable, Tender (Mild right-sided suprapubic tenderness.) Neurological: Alert, Oriented, CN II-XII Intact, Normal Cognition, Normal Gait, Normal Reflexes, No Motor/Sensory Deficits Psychiatric: Normal Affect, Normal Mood Skin Exam: Warm, Dry, Intact, Normal Color, No Rash Course - Vital Signs Last Recorded V/S: Last Vital Signs Temp 99.1 F 09/23/19 14:26 Pulse 78 09/23/19 14:26 Resp 20 09/23/19 14:26 BP 109/65 09/23/19 14:26 Pulse Ox 99 09/23/19 14:26 - Orders/Labs/Meds Labs: Laboratory Tests 09/23/19 09/23/19 09/23/19 Range/Units 16:44 16:44 16:44 WBC 11.28 H (3.98-10.04) K/mm3 RBC 4.69 (3.98-5.22) M/mm3 Hgb 13.2 (11.2-15.7) gm/dl Hct 40.7 (34.1-44.9) % MCV 86.8 (79.4-94.8) fl MCH 28.1 (25.6-32.2) pg MCHC 32.4 (32.2-35.5) g/dl RDW Std Deviation 41.4 (36.4-46.3) fL Plt Count 336 (182-369) K/mm3 MPV 10.7 (9.4-12.3) fl Neut % (Auto) 64.1 (34.0-71.1) % Lymph % (Auto) 27.5 (19.3-51.7) % [place] % (Auto) 6.4 (4.7-12.5) % Eos % (Auto) 1.2 (0.7-5.8) Baso % (Auto) 0.4 (0.1-1.2) % Neut # (Auto) 7.24 H (1.56-6.13) K/mm3 Lymph # (Auto) 3.10 (1.18-3.74) K/mm3 [place] # (Auto) 0.72 H (0.24-0.36) K/mm3 Eos # (Auto) 0.14 (0.04-0.36) K/mm3 Baso # (Auto) 0.04 (0.01-0.08) K/mm3 Sodium 139 (136-145) mEq/L Potassium 4.1 (3.5-5.1) mEq/L Chloride 103 (98-107) mEq/L Carbon Dioxide 26 (21-32) mEq/L Anion Gap 14.1 (5-15) BUN 11 (7-18) mg/dL Creatinine 1.0 (0.55-1.02) mg/dL Est Cr Clr Drug Dosing 78.06 mL/min Estimated GFR (MDRD) > 60 (>60) mL/min BUN/Creatinine Ratio 11.0 L (14-18) Glucose 82 (74-106) mg/dL Calcium 9.3 (8.5-10.1) mg/dL Total Bilirubin 0.5 (0.2-1.0) mg/dL AST 20 (15-37) U/L ALT 46 (14-59) U/L Alkaline Phosphatase 57 (46-116) U/L C-Reactive Protein 0.2 (<1.0) mg/dL Total Protein 7.4 (6.4-8.2) g/dl Albumin 3.9 (3.4-5.0) g/dl Globulin 3.5 gm/dL Albumin/Globulin Ratio 1.1 (1-2) HCG, Quant 94556.0 mIU/mL Urine Color (Yellow) Urine Appearance (Clear) Urine pH (5.0-8.0) Ur Specific [place] (1.005-1.030) Urine Protein (Negative) Urine Glucose (UA) (Negative) Urine Ketones (Negative) Urine Occult Blood (Negative) Urine Nitrite (Negative) Urine Bilirubin (Negative) Urine Urobilinogen (0.2-1.0) Ur Leukocyte Esterase (Negative) Urine RBC (0-5) /hpf Urine WBC (0-5) /hpf Ur Squamous Epith Cells (0-5) /hpf Urine Bacteria (FEW) /hpf Urine Mucus (FEW) /hpf Blood Type 09/23/19 09/23/19 Range/Units 16:44 17:20 WBC (3.98-10.04) K/mm3 RBC (3.98-5.22) M/mm3 Hgb (11.2-15.7) gm/dl Hct (34.1-44.9) % MCV (79.4-94.8) fl MCH (25.6-32.2) pg MCHC (32.2-35.5) g/dl RDW Std Deviation (36.4-46.3) fL Plt Count (182-369) K/mm3 MPV (9.4-12.3) fl Neut % (Auto) (34.0-71.1) % Lymph % (Auto) (19.3-51.7) % [place] % (Auto) (4.7-12.5) % Eos % (Auto) (0.7-5.8) Baso % (Auto) (0.1-1.2) % Neut # (Auto) (1.56-6.13) K/mm3 Lymph # (Auto) (1.18-3.74) K/mm3 [place] # (Auto) (0.24-0.36) K/mm3 Eos # (Auto) (0.04-0.36) K/mm3 Baso # (Auto) (0.01-0.08) K/mm3 Sodium (136-145) mEq/L Potassium (3.5-5.1) mEq/L Chloride (98-107) mEq/L Carbon Dioxide (21-32) mEq/L Anion Gap (5-15) BUN (7-18) mg/dL Creatinine (0.55-1.02) mg/dL Est Cr Clr Drug Dosing mL/min Estimated GFR (MDRD) (>60) mL/min BUN/Creatinine Ratio (14-18) Glucose (74-106) mg/dL Calcium (8.5-10.1) mg/dL Total Bilirubin (0.2-1.0) mg/dL AST (15-37) U/L ALT (14-59) U/L Alkaline Phosphatase (46-116) U/L C-Reactive Protein (<1.0) mg/dL Total Protein (6.4-8.2) g/dl Albumin (3.4-5.0) g/dl Globulin gm/dL Albumin/Globulin Ratio (1-2) HCG, Quant mIU/mL Urine Color Yellow (Yellow) Urine Appearance Clear (Clear) Urine pH 5.5 (5.0-8.0) Ur Specific [place] 1.025 (1.005-1.030) Urine Protein Negative (Negative) Urine Glucose (UA) Negative (Negative) Urine Ketones 2+ H (Negative) Urine Occult Blood Negative (Negative) Urine Nitrite Negative (Negative) Urine Bilirubin Negative (Negative) Urine Urobilinogen 0.2 (0.2-1.0) Ur Leukocyte Esterase Negative (Negative) Urine RBC 0-5 (0-5) /hpf Urine WBC Not seen (0-5) /hpf Ur Squamous Epith Cells 0-5 (0-5) /hpf Urine Bacteria Rare (FEW) /hpf Urine Mucus Not seen (FEW) /hpf Blood Type A NEGATIVE - Re-Assessments/Exams Free Text/Narrative Re-Assessment/Exam: 09/23/191910 Patient's hematology and urinalysis was found to be normal. Ultrasound of the pelvis showed a single intrauterine gestation. No pole or yolk was visible. Measuring 5 weeks 2 days gestation. Ultrasound of the right lower quadrant showed no definite appendix. On exam, patient's area of tenderness seems to be too low to be appendicitis and since is been present for the last 2 weeks, and her labs show no signs of infection I feel appendicitis is highly unlikely. We will discharge her home with instructions to follow-up with her SALES FLOOR MANAGER. Urinalysis results are still pending, therefore she will be notified if there are any abnormalities found on this. Return to the ER for any worsening symptoms. Discharge instructions as documented. 09/23/192044 Urinalysis results were normal. No signs of infection. Departure - Departure Time of Disposition: 19:11 Disposition: Home, Self-Care 01 Condition: Good Clinical Impression: Pelvic pain - Discharge Information *PRESCRIPTION DRUG MONITORING PROGRAM REVIEWED*: No *COPY OF PRESCRIPTION DRUG MONITORING REPORT IN PATIENT BÁRBARA: No Instructions: Pelvic Pain, Female, [id number] Referrals: Scot Cooper MD [Primary Care Provider] - Forms: ED Department Discharge Additional Instructions: You were seen in the emergency department today for 2-week history of intermittent right-sided pelvic pain. Your work-up included blood work, u rinalysis, a transvaginal OB ultrasound, as well as a low abdominal ultrasound. Your work-up was found to be normal. Your hCGs are appropriately elevated. The was found to be located within your uterus. Your blood work shows no signs of inflammation or infection. Your urinalysis results are pending, however if anything comes back abnormal on those, you will be notified. As we discussed, suspicion for appendicitis is quite low, however if you should experience any worsening symptoms such as increased pain, fever, chills, vomiting, or any other symptoms of concern, I would recommend that you return to the emergency department. Follow-up with your SALES FLOOR MANAGER as planned. Sepsis Event Note (ED) - Evaluation Sepsis Screening Result: No Definite Risk
== END 2019-09-23 19:20 | disposition home or self-care (01) ==
LOC: JD.ED 14:04
DX: R10.2 Pelvic and perineal pain (principal); Z88.8 Allergy status to other drugs, medicaments and biological substances
CPT/HCPCS: 36415; 76705; 76705-26; 76817; 76817-26; 80053; 81001; 84702; 85025; 86140; 86900; 86901; 99282; 99284-25

== ENCOUNTER 2019-10-15 19:13 | Emergency (ER) | payer MEDICAID ==
[2019-10-15 19:28] VITALS: BP 111/81; PULSE 84
[2019-10-15] MEDS ORDERED: Sodium Chloride 0.9% 10 ML Syringe FLUSH PRN (19:57)
--- NOTE | 2019-10-15 20:12 | EDM.PDOC ---
ED HPI GENERAL MEDICAL PROBLEM - General Chief Complaint: HUMANITIES COORDINATOR Problem Stated Complaint: 8WEEKS,PG VAGINAL BLEEDING Time Seen by Provider: 10/15/19 19:42 Source of Information: Reports: Patient, Old Records (ultrasound report from wednesday), RN Notes Reviewed History Limitations: Reports: No Limitations - History of Present Illness INITIAL COMMENTS - FREE TEXT/NARRATIVE: Patient is a 24-year-old female who presents to the ED for evaluation of her vaginal bleeding and . She is a G2, P1. She follows with Dr. Cooper for HUMANITIES COORDINATOR. Patient notes that after the ultrasound on Wednesday, she has been experiencing vaginal bleeding, and she noticed passing some large clot type material today. She states she is not bleeding a whole lot, but nonetheless is still bleeding. She also reported some in pretty intense abdominal cramps on Wednesday. She notes she is not received the ultrasound report that was done on Wednesday. Patient is a negative by lab standards the last time she was in the ER. She notes that the clots started showing up at 6 PM tonight. She notes that her first went well and there was no issues. She denies any fever/chills, nausea/vomiting/diarrhea, cough or shortness of breath. States she is feeling well otherwise. - Related Data Allergies Allergy/AdvReac Type Severity Reaction Status Date / Time levetiracetam Allergy Severe Dizziness Verified 10/15/19 19:29 oxcarbazepine Allergy Severe Cannot Verified 10/15/19 19:29 Remember Home Meds: Home Meds . [No Known Home Meds] 10/15/19 [History] Past Medical History HUMANITIES COORDINATOR History: Reports: , Other (See Below) : 2 Para: 1 Other HUMANITIES COORDINATOR History: Ovarian cysts w/ rupture in 2019. Neurological History: Reports: Seizure Other Neuro History: off medication since 2009 Psychiatric History: Reports: Anxiety - Infectious Disease History Infectious Disease History: Reports: Chicken Pox, Human Papilloma Virus (HPV) - Past Surgical History HEENT Surgical History: Reports: Adenoidectomy, Tonsillectomy Female Surgical History: Reports: Section Social & Family History - Family History Family Medical History: Noncontributory - Tobacco Use Smoking Status *Q: Never Smoker Second Hand Smoke Exposure: No - Caffeine Use Caffeine Use: Reports: None - Recreational Drug Use Recreational Drug Use: No - Sexual History Sexual History: Reports: Sexually Active ED ROS GENERAL - Review of Systems Review Of Systems: Comprehensive ROS is negative, except as noted in HPI. ED EXAM - Physical Exam Exam: See Below Exam Limited By: No Limitations General Appearance: Alert, WD/WN, No Apparent Distress Respiratory/Chest: No Respiratory Distress, Lungs Clear, Normal Breath Sounds, No Accessory Muscle Use, Chest Non-Tender Cardiovascular: Normal Peripheral Pulses, Regular Rate, Rhythm, No Edema, No Murmur Heart Tones: Not Motley Movement: Not Appreciated Neurological: Alert, Oriented, Normal Cognition, No Motor/Sensory Deficits Psychiatric: Normal Affect, Normal Mood Skin Exam: Warm, Dry, Intact, Normal Color, No Rash Course - Vital Signs Last Recorded V/S: Last Vital Signs Temp 97.5 F 10/15/19 19:28 Pulse 84 10/15/19 19:28 Resp 15 10/15/19 19:28 BP 111/81 10/15/19 19:28 Pulse Ox 100 10/15/19 19:28 - Orders/Labs/Meds Orders: Active Orders 24 hr Category Date Time Status Peripheral IV Insertion Adult [OM.PC] Routine Oth 10/15/19 19:57 Ordered Meds: Medications Discontinued Medications Generic Name Dose Route Start Last Admin Trade Name Freq PRN Reason Stop Dose Admin Sodium Chloride 10 ml 10/15/19 19:57 Saline Flush FLUSH ASDIRECTED PRN Keep Vein Open - Re-Assessments/Exams Free Text/Narrative Re-Assessment/Exam: 10/15/19 20:19 The patient presents to the ED for evaluation of her vaginal bleeding and pregna ncy. The ultrasound showed an irregular gestational sac compatible with blighted ovum. No growth is seen from previous study, gestational sac is measured at 5 weeks 3 days. No pole is seen. This is most consistent with a nonviable . I do believe that the patient is having a incomplete miscarriage or starting a miscarriage, on Wednesday. I did confer with Dr. Hurd, he states that the patient is a negative she should get 1 amp of RhoGam, she can either use or not use Cytotec for management, I did go over the results of the ultrasound and options with the patient, and she would rather go home tonight and she promises to follow-up with Dr. Cooper in the morning, or return to the ER if her bleeding or cramping worsens overnight. Dr. Hurd said that this would be okay and he is also going to make Dr. Cooper aware that the patient was in the ER, and that she needs RhoGam tomorrow. I did stress the importance to the patient that she does need this medication and she will need to follow-up with Dr. Cooper. She expressed understanding. Patient's blood pressure at time of triage is within normal limits at 111/81. She complains of no lightheadedness or dizziness to suggest volume depletion. Departure - Departure Time of Disposition: 20:07 Disposition: Home, Self-Care 01 Condition: Fair Clinical Impression: Incomplete , Spontaneous - Discharge Information *PRESCRIPTION DRUG MONITORING PROGRAM REVIEWED*: No *COPY OF PRESCRIPTION DRUG MONITORING REPORT IN PATIENT BÁRBARA: No Instructions: Incomplete Miscarriage Referrals: Nataly Coates PA-C [Primary Care Provider] - Forms: ED Department Discharge Additional Instructions: You were evaluated in the ER today regarding your abdominal pain/vaginal bleeding in . Your ultrasound done on Wednesday, demonstrated an irregular gestational sac compatible with a blighted ovum. No growth was seen from the previous study, findings do confirm a nonviable . If you are bleeding through more than 1 maxi pads every 15-30mins, this would be cause for concern to return to the ER for immediate management. As this would be too much bleeding. Please follow up with your HUMANITIES COORDINATOR, Dr. Cooper tomorrow for certain labs and medications pertaining to the spontaneous . You will need RhoGam as your blood type is A-. Call right away at 8am for an immediate appointment with Dr. Cooper tomorrow. This is not negotiable and you will need this medication because of your blood type. You may take 600mg ibuprofen Q6H PRN for cramping. Please return to the ED at any time if your symptoms change or worsen. Sepsis Event Note (ED) - Evaluation Sepsis Screening Result: No Definite Risk - Focused Exam Vital Signs: Vital Signs Temp Pulse Resp BP Pulse Ox 10/15/19 19:28 97.5 F 84 15 111/81 100 - My Orders Last 24 Hours: My Active Orders 10/15/19 19:57 Peripheral IV Insertion Adult [OM.PC] Routine - Assessment/Plan Last 24 Hours: My Active Orders 10/15/19 19:57 Peripheral IV Insertion Adult [OM.PC] Routine
== END 2019-10-15 20:20 | disposition home or self-care (01) ==
LOC: JD.ED 19:13
DX: O03.4 Incomplete spontaneous abortion without complication (principal); Z88.8 Allergy status to other drugs, medicaments and biological substances
CPT/HCPCS: 99283; 99284

== ENCOUNTER 2019-10-20 10:36 | Emergency (ER) | payer MEDICAID ==
[2019-10-20 11:06] VITALS: BP 121/79; PULSE 105
--- NOTE | 2019-10-20 11:47 | EDM.PDOC ---
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 Cooper), RN Notes Reviewed History Limitations: Reports: No Limitations - History of Present Illness INITIAL COMMENTS - FREE TEXT/NARRATIVE: Patient is a 24-year-old female who presents to the ED for the evaluation of her abdominal cramping. He is a G2, (spontaneous ). Patient was seen in this ER a few days ago, and had the misfortune of having a miscarriage. She did follow-up with Dr. Cooper on Wednesday, and he did a pelvic exam, gave her RhoGam, and scheduled her for a D&C on October 26. Patient states that last night, she started having intense abdominal cramping, so much so that it felt like contractions. She states he stopped it about 1:30 AM, she did have some vaginal bleeding and passed a clot at that time. She states this morning however the pain started all over, she did call Dr. Cooper's nurse, but they directed her to the ER for further management. Patient is feeling fine otherwise, no fevers or chills, cough/shortness of breath. She does not feel dizzy or lightheaded. Her blood pressure is stable at time of exam of 121/79. She did take 800 mg ibuprofen yesterday, but states she does not think it helped much, so she did not take any more of it. Patient is now requesting Cytotec, rather than having to go through with a D&C. 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 Neurological History: Reports: Seizure Other Neuro History: off medication since 2009 Psychiatric History: Reports: Anxiety - Infectious Disease History Infectious Disease History: Reports: Chicken Pox, Human Papilloma Virus (HPV) - Past Surgical History HEENT Surgical History: Reports: Adenoidectomy, Tonsillectomy Female Surgical History: Reports: Section Social & Family History - Family History Family Medical History: Noncontributory - Tobacco Use Smoking Status *Q: Never Smoker Second Hand Smoke Exposure: No - Caffeine Use Caffeine Use: Reports: None - Sexual History Sexual History: Reports: Sexually Active ED ROS GENERAL - Review of Systems Review Of Systems: Comprehensive ROS is negative, except as noted in HPI. ED EXAM - Physical Exam Exam: See Below Exam Limited By: No Limitations General Appearance: Alert, WD/WN, No Apparent Distress Respiratory/Chest: No Respiratory Distress, Lungs Clear, Normal Breath Sounds, No Accessory Muscle Use, Chest Non-Tender Cardiovascular: Normal Peripheral Pulses, Regular Rate, Rhythm, No Murmur GI/Abdominal Exam: Normal Bowel Sounds, Soft, No Distention, No Mass, Tender (mild tenderness suprapubically) (Female) Exam: Other (deferred, just had one on wednesday, she notes scant vaginal bleeding) Heart Tones: Not Letcher Movement: Not Appreciated Extremities: Normal Inspection, Normal Capillary Refill Neurological: Alert, Oriented, Normal Cognition, No Motor/Sensory Deficits Psychiatric: Normal Affect, Normal Mood Skin Exam: Warm, Dry, Intact, Normal Color, No Rash Course - Vital Signs Last Recorded V/S: Last Vital Signs Temp 97.8 F 10/20/19 11:02 Pulse 105 H 10/20/19 11:02 Resp 16 10/20/19 11:02 BP 121/79 10/20/19 11:02 Pulse Ox 100 10/20/19 11:02 - Orders/Labs/Meds Orders: Active Orders 24 hr Category Date Time Status HCG QUANTITATIVE [CHEM] Stat Lab 10/20/19 11:45 Received Labs: Laboratory Tests 10/20/19 Range/Units 11:45 WBC 9.06 (3.98-10.04) K/mm3 RBC 4.63 (3.98-5.22) M/mm3 Hgb 12.9 (11.2-15.7) gm/dl Hct 40.3 (34.1-44.9) % MCV 87.0 (79.4-94.8) fl MCH 27.9 (25.6-32.2) pg MCHC 32.0 L (32.2-35.5) g/dl RDW Std Deviation 40.9 (36.4-46.3) fL Plt Count 350 (182-369) K/mm3 MPV 10.3 (9.4-12.3) fl Neut % (Auto) 64.4 (34.0-71.1) % Lymph % (Auto) 26.4 (19.3-51.7) % Shelby % (Auto) 6.7 (4.7-12.5) % Eos % (Auto) 1.9 (0.7-5.8) Baso % (Auto) 0.4 (0.1-1.2) % Neut # (Auto) 5.83 (1.56-6.13) K/mm3 Lymph # (Auto) 2.39 (1.18-3.74) K/mm3 Shelby # (Auto) 0.61 H (0.24-0.36) K/mm3 Eos # (Auto) 0.17 (0.04-0.36) K/mm3 Baso # (Auto) 0.04 (0.01-0.08) K/mm3 - Re-Assessments/Exams Free Text/Narrative Re-Assessment/Exam: 10/20/19 11:56 Patient presents to the ED for evaluation of her abdominal cramping, during a miscarriage. I did call Dr. Cooper in consultation, and he states to give her 800 mcg initially, and then she is to take 2 more tablets 24 hours later. Patient states that her mother is can be with her on Wednesday, and that she would like to do this on Wednesday. This seems fine with me. I have given her some Tylenol and ibuprofen tablets, and we will give her a set schedule and when to take them, as to help with the abdominal cramping. 10/20/19 12:30 Hemoglobin is 12.9. She will be discharged home at this time with the above plan. Departure - Departure Time of Disposition: 11:57 Disposition: Home, Self-Care 01 Condition: Good Clinical Impression: Spontaneous - Discharge Information *PRESCRIPTION DRUG MONITORING PROGRAM REVIEWED*: No *COPY OF PRESCRIPTION DRUG MONITORING REPORT IN PATIENT BÁRBARA: No Prescriptions: Acetaminophen [Acetaminophen ER] 650 mg PO Q6H #20 tablet.er miSOPROStoL [Cytotec] 200 mcg PO ASDIRECTED #6 tablet Ibuprofen 600 mg PO Q6H #20 tablet Instructions: Managing Loss Referrals: Scot Cooper MD [Primary Care Provider] - Forms: ED Department Discharge Additional Instructions: You were evaluated in the ER today for your ongoing abdominal pain. 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 Cooper was consulted, you have been given a prescription for Cytotec, you will need to take 800 mcg, (4 tabs) in the morning, and then repeat with 400 mcg (2 tabs) 24 hours later. You have been given a prescription for ibuprofen and acetaminophen as well. You will need to take 1 tab of ibuprofen, every 6 hours, and 1 tab acetaminophen every 6 hours, please alternate these, as you are taking one medication every 3 hours. For example: you take the ibuprofen at 8 AM, you would then take the acetaminophen at 11 AM, then you will take another dose ibuprofen at 2 PM, and another dose of acetaminophen at 5 PM, and so forth. If you do not wish to fill the ibuprofen/acetaminophen prescriptions, you will need to take 3 tablets ibuprofen (Advil/Motrin) every 6 hours, and a 650 mg tablet of Tylenol (acetaminophen) every 6 hours. Please return to the ER at any time if you feel lightheaded, or bleeding through more than 2 pads in 1 hour, as this would mean you were bleeding too much, and need more urgent management. With the Cytotec medication you will have more abdominal cramping and some vaginal bleeding, this is why you need to take the ibuprofen/acetaminophen on an alternating schedule as directed above. As always, we are here 24/7, if you should have any change or worsening of your symptoms. Sepsis Event Note (ED) - Evaluation Sepsis Screening Result: No Definite Risk - Focused Exam Vital Signs: Vital Signs Temp Pulse Resp BP Pulse Ox 10/20/19 11:02 97.8 F 105 H 16 121/79 100 - My Orders Last 24 Hours: My Active Orders 10/20/19 11:45 HCG QUANTITATIVE [CHEM] Stat - Assessment/Plan Last 24 Hours: My Active Orders 10/20/19 11:45 HCG QUANTITATIVE [CHEM] Stat
== END 2019-10-20 12:45 | disposition home or self-care (01) ==
LOC: JD.ED 10:36
DX: O03.9 Complete or unspecified spontaneous abortion without complication (principal); Z98.890 Other specified postprocedural states; Z88.8 Allergy status to other drugs, medicaments and biological substances
CPT/HCPCS: 36415; 84702; 85025; 99284

== ENCOUNTER 2019-10-20 16:12 | Emergency (ER) | payer MEDICAID ==
[2019-10-20 16:38] VITALS: BP 119/86; PULSE 82
[2019-10-20] MEDS ORDERED: Ketorolac 60 MG/2 ML SDV IM ONE (17:23)
[2019-10-20] MEDS ORDERED: Ondansetron 4 MG Tab.DIS PO ONE (17:48)
--- NOTE | 2019-10-20 18:05 | EDM.PDOC ---
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 Patient was seen earlier this morning in the ER by myself, and was having some abdominal cramping due to a miscarriage. She states that she went home, she has had increased vaginal bleeding, for which she is felt gushes of fluids. She states she is not bleeding now. She does have her mother at home, and she was on the phone in the room, and states that she was not able to get the patient up off of the bathroom floor very easily. She states that her abdomen pain is a 10 out of 10. Her blood pressure is 114/66. Mother was also concerned that she has had a fever of 99.5 F at home for the last week, she does have history of abdominal infections secondary to pregnancies. She also has a history of ovarian cysts. Right Lower Abdomen Pain Score (Numeric/FACES): 10 - Related Data Allergies Allergy/AdvReac Type Severity Reaction Status Date / Time levetiracetam Allergy Severe Dizziness Verified 10/15/19 19:29 oxcarbazepine Allergy Severe Cannot Verified 10/15/19 19:29 Remember Home Meds: Home Meds Acetaminophen [Acetaminophen ER] 650 mg PO Q6H #20 tablet.er 10/20/19 [Rx] Acetaminophen/HYDROcodone [[place] 325-5 MG] 1 tab PO Q6H PRN #15 tablet 10/20/19 [Rx] Ibuprofen 600 mg PO Q6H #20 tablet 10/20/19 [Rx] miSOPROStoL [Cytotec] 200 mcg PO ASDIRECTED #6 tablet 10/20/19 [Rx] Past Medical History - Past Health History Medical/Surgical History: Denies Medical/Surgical History 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 Neurological History: Reports: Seizure Other Neuro History: off medication since 2009 Psychiatric History: Reports: Anxiety - Infectious Disease History Infectious Disease History: Reports: Chicken Pox, Human Papilloma Virus (HPV) - Past Surgical History HEENT Surgical History: Reports: Adenoidectomy, Tonsillectomy Female Surgical History: Reports: Section Social & Family History - Family History Family Medical History: Noncontributory - Caffeine Use Caffeine Use: Reports: None - Sexual History Sexual History: Reports: Sexually Active ED ROS GENERAL - Review of Systems Review Of Systems: Comprehensive ROS is negative, except as noted in HPI. ED EXAM - Physical Exam Exam: See Below Exam Limited By: No Limitations General Appearance: Alert, WD/WN, No Apparent Distress, Anxious (pt has her knees drawn up to her chest, but is able to answer questions appropriately.) Respiratory/Chest: No Respiratory Distress, Lungs Clear, Normal Breath Sounds, No Accessory Muscle Use, Chest Non-Tender Cardiovascular: Normal Peripheral Pulses, Regular Rate, Rhythm, No Murmur GI/Abdominal Exam: Normal Bowel Sounds, Soft, Non-Tender, No Distention, No Mass (Female) Exam: Deferred for Placenta Previa (pt is to get transvaginal US and declined exam.) Extremities: Normal Inspection, Normal Capillary Refill Neurological: Alert, Oriented, Normal Cognition, No Motor/Sensory Deficits Psychiatric: Normal Affect, Normal Mood, Anxious Skin Exam: Warm, Dry, Intact, Normal Color, No Rash Course - Vital Signs Last Recorded V/S: Last Vital Signs Temp 97.6 F 10/20/19 16:36 Pulse 82 10/20/19 16:36 Resp 20 10/20/19 16:36 BP 119/86 10/20/19 16:36 Pulse Ox - Orders/Labs/Meds Meds: Medications Discontinued Medications Generic Name Dose Route Start Last Admin Trade Name Tae PRN Reason Stop Dose Admin Ketorolac Tromethamine 60 mg 10/20/19 17:23 10/20/19 18:07 Toradol IM 10/20/19 17:24 60 mg ONETIME ONE Administration Ondansetron HCl 4 mg 10/20/19 17:48 10/20/19 18:08 Zofran Odt PO 10/20/19 17:49 4 mg ONETIME ONE Administration - Re-Assessments/Exams Free Text/Narrative Re-Assessment/Exam: 10/20/19 18:03 Patient presents to the ED for her ongoing abdomen pain. Have ordered transvaginal ultrasound to evaluate for retained products of conception and to possibly rule out any other etiologies of the patient's abdomen pain, although I do highly suspect that it is due to her miscarriage that is ongoing. Patient does not appear to be hypotensive, labs were done this morning and demonstrated a hemoglobin within normal limits. She is not dizzy or lightheaded at the time of exam again. 10/20/19 19:12 Patient's blood pressures have been monitored while in the ER, and everything has been okay over 100 systolically. She is not feeling any lightheaded or dizziness. The patient's ovaries appear within normal limits no free fluid is seen in the pelvis. The previous irregularly-shaped gestational sac is no longer seen, endometrial stripe is heterogenous which may represent blood clot or retained products of conception. Patient was sent home with Cytotec this morning, I did tell her that she needs to still take this, and I did give her return precautions. She will be given a few tablets of [place] for pain management as not relieved by Tylenol or ibuprofen. Patient verbalized understanding and is ready to go home at this time. Departure - Departure Time of Disposition: 19:14 Disposition: Home, Self-Care 01 Condition: Good Clinical Impression: Incomplete - Discharge Information *PRESCRIPTION DRUG MONITORING PROGRAM REVIEWED*: No *COPY OF PRESCRIPTION DRUG MONITORING REPORT IN PATIENT BÁRBARA: No Instructions: Incomplete Miscarriage Referrals: Scot Cooper MD [Primary Care Provider] - Forms: ED Department Discharge Additional Instructions: You were evaluated in the ER today regarding your ongoing spontaneous miscarriage. Ultrasound done at today's visit, demonstrates gestational sac that is no longer seen, but questionable retained products of conception, so you still need to take the Cytotec as previously directed on your discharge instructions this morning. You were given a prescription for a strong pain medication, hydrocodone/acetaminophen 5/325 mg, please take 1 tab every 6 hours as needed for pain not relieved by Tylenol or ibuprofen alone. Please note this medication does contain Tylenol in it, so do not take more than 4000 mg in a 24- hour time span. These medications can be addictive, so please take as few as possible to achieve adequate pain control. These meds can also be quite constipating, recommend that you increase your oral fluid intake and take a stool softener like MiraLAX while taking these medications. Do not drive while taking this medication. Please use this medication only if your pain is not relieved by Tylenol or ibuprofen alone. Recommend you follow-up with Dr. Cooper at your next appointment, for repeat ultrasound or other testing if he deems otherwise. Otherwise, please follow all previous discharge instructions as laid forward by my last note this morning. For Cytotec, and Tylenol/ibuprofen usage. Please return to the ER at any time if symptoms change or worsen. Sepsis Event Note (ED) - Evaluation Sepsis Screening Result: No Definite Risk - Focused Exam Vital Signs: Vital Signs Temp Pulse Resp BP 10/20/19 16:36 97.6 F 82 20 119/86
--- NOTE | 2019-10-20 19:07 | US ---
First trimester obstetrical ultrasound: Multiple real-time images were obtained transvaginally. Comparison: Previous study of 10/13/19. Previous irregularly shaped gestational sac is no longer seen. Endometrial stripe is heterogeneous which may represent blood clot or retained products of conception. Ovaries appear within normal limits. No free fluid is seen. Impression: 1. Previously noted irregularly shaped gestational sac is no longer seen. 2. Heterogeneous endometrial stripe possibly due to blood clot or retained products of conception. 3. No additional abnormality is appreciated. Diagnostic code #3 This report was dictated in [facility]T
== END 2019-10-20 19:26 | disposition home or self-care (01) ==
LOC: JD.ED 16:12
DX: O03.4 Incomplete spontaneous abortion without complication (principal); Z88.8 Allergy status to other drugs, medicaments and biological substances; Z98.890 Other specified postprocedural states
CPT/HCPCS: 76817; 96372; 99284; A9270; J1885

== ENCOUNTER 2020-02-14 23:47 | Emergency (ER) | payer MEDICAID ==
[2020-02-15] VITALS: BP 102/64; PULSE 76
[2020-02-15] MEDS ORDERED: Alum Hydrox/Mag Hydrox/Simeth 30 ML, Lidocaine 2% 15 ML PO STA ×2 (00:03)
--- NOTE | 2020-02-15 00:15 | EDM.PDOC ---
ED HPI GENERAL MEDICAL PROBLEM - General Chief Complaint: Abdominal Pain Stated Complaint: ABDOMINAL PAIN INTO CHEST AND THROAT Time Seen by Provider: 02/14/20 23:58 Source of Information: Reports: Patient History Limitations: Reports: No Limitations - History of Present Illness INITIAL COMMENTS - FREE TEXT/NARRATIVE: Ms. Mayen is a very pleasant 24-year-old woman who now presents the ED after developing sharp/crampy epigastric pain that radiated up through her chest into her throat around 23:00 night, while she was sitting. No associated nausea or diarrhea. No prior similar symptoms. The patient did not take any [id number] or home remedies prior to coming to the ED. Her LMP was 01/22/2020. Here in the ED, the patient is found to be hemodynamically stable, afebrile, saturating 99% on room air. Prior to tonight, the patient denies having a recent fever, chills, sore throat, ear pain, nasal or sinus congestion, cough, dyspnea, chest pain, palpitations, nausea, vomiting, constipation, diarrhea, abdominal pain, urinary symptoms, recent weight gain or weight loss, recent bloody bowel movements or black bowel movements, recent joint aches, headaches, or rashes. The patient does not have a PCP. She has not received an influenza vaccine this season, and declined an offer to receive one here in the ED. Epigastric Pain Score (Numeric/FACES): 3 - Related Data Allergies Allergy/AdvReac Type Severity Reaction Status Date / Time levetiracetam Allergy Severe Dizziness Verified 02/15/20 00:01 oxcarbazepine Allergy Severe Cannot Verified 02/15/20 00:01 Remember Home Meds: Home Meds . 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 (x 1), Other (See Below) (ruptured ovarian cyst) Neurological History: Reports: Seizure (as a child) Psychiatric History: Reports: Anxiety - Infectious Disease History Infectious Disease History: Reports: Chicken Pox, Human Papilloma Virus (HPV) - Past Surgical History HEENT Surgical History: Reports: Adenoidectomy, Tonsillectomy Female Surgical History: Reports: Section (x 1) Social & Family History - Tobacco Use Tobacco Use Status *Q: Current Every Day Tobacco User Years of Tobacco use: 6 Packs/Tins Daily: 0.5 Packs/Tins Daily Comment: Down from 1 ppd - Caffeine Use Caffeine Use: Reports: Coffee - Alcohol Use Alcohol Use History: Yes Alcohol Use Frequency: Rarely - Recreational Drug Use Recreational Drug Use: No - Sexual History Sexual History: Reports: Sexually Active - Living Situation & Occupation Living situation: Reports: Single, with Family (Son) Occupation: Employed ([employer]) ED ROS GENERAL - Review of Systems Review Of Systems: Comprehensive ROS is negative, except as noted in HPI. ED EXAM, GENERAL - Physical Exam Exam: See Below Exam Limited By: No Limitations General Appearance: Alert, WD/WN, No Apparent Distress Eye Exam: Bilateral Eye: EOMI, Normal Inspection Ears: Normal External Exam, Hearing Grossly Normal Nose: Normal Inspection Throat/Mouth: Normal Inspection, Normal Lips, Normal Voice, No Airway Compromise Head: Atraumatic, Normocephalic Neck: Normal Inspection, Full Range of Motion Respiratory/Chest: No Respiratory Distress, Lungs Clear, Normal Breath Sounds, No Accessory Muscle Use Cardiovascular: Normal Peripheral Pulses, Regular Rate, Rhythm, No Edema, No Gallop, No JVD, No Murmur, No Rub Peripheral Pulses: 3+: Radial (L), Radial (R) GI/Abdominal: Normal Bowel Sounds, Soft, No Organomegaly, No Distention, No Abnormal Bruit, No Mass, Tender (Slight, epigastric only. Nontender elsewhere.) Back Exam: Normal Inspection, Full Range of Motion, NT Extremities: Normal Inspection, Normal Range of Motion, No Pedal Edema, Normal Capillary Refill Neurological: Alert, Oriented, Normal Cognition, No Motor/Sensory Deficits Psychiatric: Normal Affect Skin Exam: Warm, Dry, Intact, Normal Color, No Rash Course - Vital Signs Last Recorded V/S: Last Vital Signs Temp 36.4 C 02/14/20 23:56 Pulse 76 02/14/20 23:56 Resp 20 02/14/20 23:56 BP 102/64 02/14/20 23:56 Pulse Ox 99 02/14/20 23:56 - Orders/Labs/Meds Orders: Active Orders 24 hr Category Date Time Status Famotidine [Pepcid] Med 02/15/20 02:06 Stat 40 mg PO ONETIME STA Labs: Laboratory Tests 02/15/20 02/15/20 02/15/20 Range/Units 00:21 00:21 01:26 WBC 10.83 H (3.98-10.04) K/mm3 RBC 4.57 (3.98-5.22) M/mm3 Hgb 12.6 (11.2-15.7) gm/dl Hct 39.3 (34.1-44.9) % MCV 86.0 (79.4-94.8) fl MCH 27.6 (25.6-32.2) pg MCHC 32.1 L (32.2-35.5) g/dl RDW Std Deviation 44.0 (36.4-46.3) fL Plt Count 277 (182-369) K/mm3 MPV 11.5 (9.4-12.3) fl Neutrophils % (Manual) 52 (40-60) % Band Neutrophils % 0 (0-10) % Lymphocytes % (Manual) 39 (20-40) % Atypical Lymphs % 0 % Monocytes % (Manual) 7 (2-10) % Eosinophils % (Manual) 2 (0.7-5.8) % Basophils % (Manual) 0 L (0.1-1.2) Platelet Estimate Adequate RBC Morph Comment Normal Sodium 139 (136-145) mEq/L Potassium 3.9 (3.5-5.1) mEq/L Chloride 105 (98-107) mEq/L Carbon Dioxide 27 (21-32) mEq/L Anion Gap 10.9 (5-15) BUN 14 (7-18) mg/dL Creatinine 1.0 (0.55-1.02) mg/dL Est Cr Clr Drug Dosing 78.06 mL/min Estimated GFR (MDRD) > 60 (>60) mL/min BUN/Creatinine Ratio 14.0 (14-18) Glucose 93 (74-106) mg/dL Calcium 9.0 (8.5-10.1) mg/dL Total Bilirubin 0.2 (0.2-1.0) mg/dL AST 11 L (15-37) U/L ALT 21 (14-59) U/L Alkaline Phosphatase 58 (46-116) U/L Total Protein 6.8 (6.4-8.2) g/dl Albumin 3.7 (3.4-5.0) g/dl Globulin 3.1 gm/dL Albumin/Globulin Ratio 1.2 (1-2) Lipase 69 L (73-393) U/L Urine HCG, Qual Negative (NEGATIVE) Meds: Medications Discontinued Medications Generic Name Dose Route Start Last Admin Trade Name Tae PRN Reason Stop Dose Admin Al Hydroxide/Mg Hydroxide 30 0 ml 02/15/20 00:03 02/15/20 00:16 ml/ Lidocaine HCl 15 ml PO 02/15/20 00:04 45 ml ONETIME STA Administration - Re-Assessments/Exams Free Text/Narrative Re-Assessment/Exam: 02/15/20 00:10 The patient's history is most consistent with acid reflux, therefore I have ordered a GI cocktail to see if that modifies her sensation at all. In the meantime, I have also ordered several blood tests and a urine test. 02/15/20 01:13 The patient's CBC is remarkable for WBC count slightly elevated at 10.83, but with 0% bandemia, and the remainder of her CBC being unremarkable. Her CMP and lipase level are within normal limits. She has not yet provided a urine sample. 02/15/20 02:07 The patient's urine test returned negative. Test results discussed with the patient. She stated that her epigastric pain resolved briefly following the GI cocktail, but that it returned. I explained that her history and physical exam are most consistent with GERD. I recommended that she start on [id number] famotidine, 1 tablet twice a day, for about a week, after which she should switch to 1 tablet once a day. If she remains asymptomatic, then she should stay on that indefinitely. If her symptoms return after reducing to 1 tablet once a day, she should go back on 1 tablet twice a day. If she does not have symptomatic relief with 1 tablet twice a day, she may need to be started on a PPI, but not case, I would recommend that she undergo an EGD to make sure that there is not something else going on. Departure - Departure Time of Disposition: 02:08 Disposition: Home, Self-Care 01 Condition: Good Clinical Impression: GERD (gastroesophageal reflux disease) - Discharge Information *PRESCRIPTION DRUG MONITORING PROGRAM REVIEWED*: Not Applicable *COPY OF PRESCRIPTION DRUG MONITORING REPORT IN PATIENT BÁRBARA: Not Applicable Referrals: PCP,None [Primary Care Provider] - Forms: ED Department Discharge Additional Instructions: You were seen in the emergency room after developing upper abdominal pain radiating up your chest into your throat. Work-up in the ER included several blood tests and a urine test. All of your tests were completely normal. You had temporary relief of your symptoms following the GI cocktail. Based on your history, physical exam, response to the GI cocktail, and ER tests, your symptoms are most likely due to GERD, also known as acid reflux. You have been started on the antacid famotidine (generic Pepcid). Famotidine is available [id number]. We recommend that you take 1 tablet of famotidine twice a day for about 1 week, after which time you can decrease the dosage to 1 tablet once a day. If you remain symptom-free on 1 tablet of famotidine once a day, we recommend that you stay on that dosage indefinitely. If your symptoms return after decreasing to 1 tablet once a day, we recommend that you go back on 1 tablet twice a day. If you continue to have symptoms while on 1 tablet twice a day, we recommend that you see a PCP to arrange for an EGD (scope of your stomach) to make sure that nothing else is going on. If any other problems, please do not hesitate to return to the ER. Sepsis Event Note (ED) - Evaluation Sepsis Screening Result: No Definite Risk - Focused Exam Vital Signs: Vital Signs Temp Pulse Resp BP Pulse Ox 02/14/20 23:56 36.4 C 76 20 102/64 99 - My Orders Last 24 Hours: My Active Orders 02/15/20 02:06 Famotidine [Pepcid] 40 mg PO ONETIME STA - Assessment/Plan Last 24 Hours: My Active Orders 02/15/20 02:06 Famotidine [Pepcid] 40 mg PO ONETIME STA
[2020-02-15] MEDS ORDERED: Famotidine 20 MG Tab PO STA (02:06)
== END 2020-02-15 02:16 | disposition home or self-care (01) ==
LOC: JD.ED 23:47
DX: K21.9 Gastro-esophageal reflux disease without esophagitis (principal); F17.210 Nicotine dependence, cigarettes, uncomplicated; Z88.8 Allergy status to other drugs, medicaments and biological substances
CPT/HCPCS: 36415; 80053; 81025; 83690; 85007; 85027; 99283; 99284; A9270-GY

== ENCOUNTER 2020-05-01 16:50 | Emergency (ER) | payer MEDICAID ==
--- NOTE | 2020-05-01 17:57 | EDM.PDOC ---
ED HPI GENERAL MEDICAL PROBLEM - General Chief Complaint: Abdominal Pain Stated Complaint: SYNCOPAL EPISODE Time Seen by Provider: 05/01/20 17:01 Source of Information: Reports: Patient History Limitations: Reports: No Limitations - History of Present Illness INITIAL COMMENTS - FREE TEXT/NARRATIVE: The patient presents with right upper abdominal pain. She works at a [employer] and she was reaching to get something and she had severe pain to the upper abdomen. She had nausea but no vomiting. She went to the bathroom but did not vomit. She stood up and nearly passed out. This happened about 2 months ago and there was no cause found. She has no fever, chills, cough, chest pain, shortness of breath, dysuria or hematuria. She says the abdominal pain and nausea are better. She still has her gallbladder. Onset: Sudden Duration: Minutes: Location: Reports: Abdomen Quality: Reports: Sharp Severity: Severe Improves with: Reports: None Worsens with: Reports: None Associated Symptoms: Reports: Syncope (Near). Denies: Chest Pain, Cough, Fever/Chills, Headaches, Nausea/Vomiting, Shortness of Breath Upper Abdomen Pain Score (Numeric/FACES): 4 - Related Data Allergies Allergy/AdvReac Type Severity Reaction Status Date / Time levetiracetam Allergy Severe Dizziness Verified 05/01/20 16:58 oxcarbazepine Allergy Severe Cannot Verified 05/01/20 16:58 Remember Home Meds: Home Meds . 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 Musculoskeletal History: Reports: Fracture Neurological History: Reports: Seizure Other Neuro History: off medication since 2009 Psychiatric History: Reports: Anxiety - Infectious Disease History Infectious Disease History: Reports: Chicken Pox, Human Papilloma Virus (HPV) - Past Surgical History HEENT Surgical History: Reports: Adenoidectomy, Tonsillectomy Female Surgical History: Reports: Section Social & Family History - Family History Family Medical History: No Pertinent Family History - Tobacco Use Tobacco Use Status *Q: Current Every Day Tobacco User Years of Tobacco use: 6 Packs/Tins Daily: 0.1 - Caffeine Use Caffeine Use: Reports: Coffee - Recreational Drug Use Recreational Drug Use: No - Sexual History Sexual History: Reports: Sexually Active - Living Situation & Occupation Living situation: Reports: Single, with Family (Son) Occupation: Employed ([employer]) ED ROS GENERAL - Review of Systems Review Of Systems: See Below Constitutional: Reports: No Symptoms HEENT: Reports: No Symptoms Respiratory: Reports: No Symptoms Cardiovascular: Reports: Syncope. Denies: Chest Pain Endocrine: Reports: No Symptoms GI/Abdominal: Reports: Abdominal Pain, Nausea. Denies: Diarrhea, Vomiting : Reports: No Symptoms Musculoskeletal: Reports: No Symptoms ED EXAM, GI/ABD - Physical Exam Exam: See Below Exam Limited By: No Limitations General Appearance: Alert, No Apparent Distress Ears: Normal External Exam Nose: Normal Inspection Head: Atraumatic, Normocephalic Neck: Normal Inspection Respiratory/Chest: No Respiratory Distress, Lungs Clear, Normal Breath Sounds Cardiovascular: Regular Rate, Rhythm, No Edema, No Murmur GI/Abdominal Exam: Soft, No Organomegaly, No Mass, Tender (Moderate tenderness to the right upper abdomen) #1 Interpretation EKG Date: 05/01/20 Time: 17:33 Rhythm: NSR Rate (Beats/Min): 73 [place]: Normal P-Wave: Present QRS: Normal ST-T: Normal QT: Normal Course - Vital Signs Last Recorded V/S: Last Vital Signs Temp 97.6 F 05/01/20 16:55 Pulse 86 05/01/20 16:55 Resp 16 05/01/20 16:55 BP 122/77 05/01/20 16:55 Pulse Ox 100 05/01/20 16:55 - Orders/Labs/Meds Orders: Active Orders 24 hr Category Date Time Status Cardiac Monitoring [RC] . DIRECTED Care 05/01/20 17:14 Active EKG Documentation Completion [RC] STAT Care 05/01/20 17:16 Active Labs: Laboratory Tests 05/01/20 05/01/20 05/01/20 Range/Units 17:31 17:31 17:31 WBC 10.70 H (3.98-10.04) K/mm3 RBC 4.62 (3.98-5.22) M/mm3 Hgb 12.8 (11.2-15.7) gm/dl Hct 40.5 (34.1-44.9) % MCV 87.7 (79.4-94.8) fl MCH 27.7 (25.6-32.2) pg MCHC 31.6 L (32.2-35.5) g/dl RDW Std Deviation 44.2 (36.4-46.3) fL Plt Count 349 (182-369) K/mm3 MPV 10.6 (9.4-12.3) fl Neut % (Auto) 58.9 (34.0-71.1) % Lymph % (Auto) 32.7 (19.3-51.7) % [place] % (Auto) 6.3 (4.7-12.5) % Eos % (Auto) 1.5 (0.7-5.8) Baso % (Auto) 0.3 (0.1-1.2) % Neut # (Auto) 6.31 H (1.56-6.13) K/mm3 Lymph # (Auto) 3.50 (1.18-3.74) K/mm3 [place] # (Auto) 0.67 H (0.24-0.36) K/mm3 Eos # (Auto) 0.16 (0.04-0.36) K/mm3 Baso # (Auto) 0.03 (0.01-0.08) K/mm3 D-Dimer, Quantitative < 0.19 L (0.19-0.50) mg/L Sodium 143 (136-145) mEq/L Potassium 4.0 (3.5-5.1) mEq/L Chloride 106 (98-107) mEq/L Carbon Dioxide 28 (21-32) mEq/L Anion Gap 13.0 (5-15) BUN 14 (7-18) mg/dL Creatinine 0.8 (0.55-1.02) mg/dL Est Cr Clr Drug Dosing 97.57 mL/min Estimated GFR (MDRD) > 60 (>60) mL/min BUN/Creatinine Ratio 17.5 (14-18) Glucose 117 H (74-106) mg/dL Calcium 9.0 (8.5-10.1) mg/dL Total Bilirubin 0.4 (0.2-1.0) mg/dL AST 20 (15-37) U/L ALT 29 (14-59) U/L Alkaline Phosphatase 60 (46-116) U/L Troponin I < 0.017 (0.00-0.056) ng/mL Total Protein 7.1 (6.4-8.2) g/dl Albumin 3.8 (3.4-5.0) g/dl Globulin 3.3 gm/dL Albumin/Globulin Ratio 1.2 (1-2) Lipase 64 L (73-393) U/L HCG, Qual (NEGATIVE) 05/01/20 Range/Units 17:31 WBC (3.98-10.04) K/mm3 RBC (3.98-5.22) M/mm3 Hgb (11.2-15.7) gm/dl Hct (34.1-44.9) % MCV (79.4-94.8) fl MCH (25.6-32.2) pg MCHC (32.2-35.5) g/dl RDW Std Deviation (36.4-46.3) fL Plt Count (182-369) K/mm3 MPV (9.4-12.3) fl Neut % (Auto) (34.0-71.1) % Lymph % (Auto) (19.3-51.7) % [place] % (Auto) (4.7-12.5) % Eos % (Auto) (0.7-5.8) Baso % (Auto) (0.1-1.2) % Neut # (Auto) (1.56-6.13) K/mm3 Lymph # (Auto) (1.18-3.74) K/mm3 [place] # (Auto) (0.24-0.36) K/mm3 Eos # (Auto) (0.04-0.36) K/mm3 Baso # (Auto) (0.01-0.08) K/mm3 D-Dimer, Quantitative (0.19-0.50) mg/L Sodium (136-145) mEq/L Potassium (3.5-5.1) mEq/L Chloride (98-107) mEq/L Carbon Dioxide (21-32) mEq/L Anion Gap (5-15) BUN (7-18) mg/dL Creatinine (0.55-1.02) mg/dL Est Cr Clr Drug Dosing mL/min Estimated GFR (MDRD) (>60) mL/min BUN/Creatinine Ratio (14-18) Glucose (74-106) mg/dL Calcium (8.5-10.1) mg/dL Total Bilirubin (0.2-1.0) mg/dL AST (15-37) U/L ALT (14-59) U/L Alkaline Phosphatase (46-116) U/L Troponin I (0.00-0.056) ng/mL Total Protein (6.4-8.2) g/dl Albumin (3.4-5.0) g/dl Globulin gm/dL Albumin/Globulin Ratio (1-2) Lipase (73-393) U/L HCG, Qual Negative (NEGATIVE) - Re-Assessments/Exams Free Text/Narrative Re-Assessment/Exam: 05/01/20 17:57 I ordered labs and an EKG. Her EKG shows a NSR with no acute changes. 05/01/20 18:15 Her WBC was elevated at 10.7. Her D-dimer is negative. Her CMP was negative. Her troponin is negative. Her lipase is low. 05/01/20 18:23 Her HCG is negative. 05/01/20 18:27 She ate a few hours ago so I would not get a good US. I will have her come back in the morning to have an US done. Departure - Departure Time of Disposition: 18:30 Disposition: Home, Self-Care 01 Condition: Good Clinical Impression: Near syncope Abdominal pain Qualifiers: Abdominal location: right upper quadrant Qualified Code(s): R10.11 - Right uppe r quadrant pain - Discharge Information *PRESCRIPTION DRUG MONITORING PROGRAM REVIEWED*: Not Applicable *COPY OF PRESCRIPTION DRUG MONITORING REPORT IN PATIENT BÁRBARA: Not Applicable Referrals: Landy Salvador MD [Primary Care Provider] - Forms: ED Department Discharge Additional Instructions: Avoid any fried fatty foods. Do not eat or drink after midnight tonight. Please return at 7:30am to get an ultrasound of your gallbladder. I will call you results after. Please return if you are worse. Sepsis Event Note (ED) - Evaluation Sepsis Screening Result: No Definite Risk - Focused Exam Vital Signs: Vital Signs Temp Pulse Resp BP Pulse Ox 05/01/20 16:55 97.6 F 86 16 122/77 100 - My Orders Last 24 Hours: My Active Orders 05/01/20 17:14 Cardiac Monitoring [RC] . DIRECTED 05/01/20 17:16 EKG Documentation Completion [RC] STAT - Assessment/Plan Last 24 Hours: My Active Orders 05/01/20 17:14 Cardiac Monitoring [RC] . DIRECTED 05/01/20 17:16 EKG Documentation Completion [RC] STAT
[2020-05-01 18:51] VITALS: BP 111/74; PULSE 84
== END 2020-05-01 18:47 | disposition home or self-care (01) ==
LOC: JD.ED 16:50
DX: R10.11 Right upper quadrant pain (principal); R55 Syncope and collapse; Z88.8 Allergy status to other drugs, medicaments and biological substances; Z72.0 Tobacco use
CPT/HCPCS: 36415; 80053; 83690; 84484; 84703; 85025; 85379; 93005; 93010; 99284; 99284-25

== ENCOUNTER 2020-07-06 18:04 | Emergency (ER) | payer MEDICAID ==
[2020-07-06 18:14] VITALS: BP 124/79; PULSE 64
--- NOTE | 2020-07-06 18:53 | EDM.PDOC ---
ED HPI GENERAL MEDICAL PROBLEM - General Chief Complaint: Abdominal Pain Stated Complaint: NAUSEA/DIZZINESS X 1 WEEK Time Seen by Provider: 07/06/20 18:17 Source of Information: Reports: Patient History Limitations: Reports: No Limitations, Other (ED vital signs reveal a temp of 98.4, pulse of 64, respiratory rate of 15, blood pressure 124/79, pulse ox 100% on room air) - History of Present Illness INITIAL COMMENTS - FREE TEXT/NARRATIVE: 25-year-old female presents the emergency department today with complaints of nausea and dizziness lasting for about a week. Per the patient she states that about 1 week ago she developed intermittent nausea and dizziness. She also states that she has had fatigue and a slight dull headache over the course of the past week. She denies any vomiting or diarrhea however she states she has had intermittent chills and hot flashes. Denies any cough or shortness of breath. She states she is otherwise healthy. Right Abdominal Pain Score (Numeric/FACES): 2 - Related Data Allergies Allergy/AdvReac Type Severity Reaction Status Date / Time oxcarbazepine Allergy Unknown Cannot Verified 07/06/20 18:15 Remember levetiracetam AdvReac Intermediate Dizziness Verified 07/06/20 18:15 Home Meds: Home Meds . [No Known Home Meds] 02/15/20 [History] Past Medical History - Past Health History Medical/Surgical History: Denies Medical/Surgical History Gastrointestinal History: Reports: Other (See Below) Other Gastrointestinal History: gallstones DECK HAND History: Reports: Spontaneous , Other (See Below) Other DECK HAND History: Ovarian cysts w/ rupture in 2019. Musculoskeletal History: Reports: Fracture Neurological History: Reports: Seizure Other Neuro History: off medication since 2009 Psychiatric History: Reports: Anxiety - Infectious Disease History Infectious Disease History: Reports: Chicken Pox, Human Papilloma Virus (HPV) - Past Surgical History HEENT Surgical History: Reports: Adenoidectomy, Tonsillectomy Female Surgical History: Reports: Section Social & Family History - Family History Family Medical History: No Pertinent Family History - Tobacco Use Tobacco Use Status *Q: Current Every Day Tobacco User Years of Tobacco use: 6 Packs/Tins Daily: 0.5 - Caffeine Use Caffeine Use: Reports: Coffee - Recreational Drug Use Recreational Drug Use: No - Sexual History Sexual History: Reports: Sexually Active - Living Situation & Occupation Living situation: Reports: Single, with Family (Son) Occupation: Employed ([email or web address]) ED ROS GENERAL - Review of Systems Review Of Systems: Comprehensive ROS is negative, except as noted in HPI. ED EXAM, GI/ABD - Physical Exam Exam: See Below Exam Limited By: No Limitations General Appearance: Alert, WD/WN, No Apparent Distress Ears: Normal External Exam, Hearing Grossly Normal Nose: Normal Inspection Throat/Mouth: Normal Inspection, Normal Lips, Normal Voice, No Airway Compromise Head: Atraumatic Neck: Normal Inspection, Supple Respiratory/Chest: No Respiratory Distress, Lungs Clear, Normal Breath Sounds, No Accessory Muscle Use, Chest Non-Tender Cardiovascular: Normal Peripheral Pulses, Regular Rate, Rhythm, No Edema, Systolic Murmur (Grade 2) GI/Abdominal Exam: Normal Bowel Sounds, Soft, Non-Tender, No Distention (Female) Exam: Deferred Rectal (Female) Exam: Deferred Back Exam: Normal Inspection Extremities: Normal Inspection Neurological: Alert, Oriented, Normal Cognition Psychiatric: Normal Affect, Normal Mood Skin Exam: Warm, Dry, Intact, Normal Color, No Rash Lymphatic: No Adenopathy Course - Vital Signs Text/Narrative:: Patient presents the emergency department today complaints of a 1 week history of nausea, fatigue, dizziness, and a dull headache and a decreased appetite. She has not been tested for Covid this year nor has she had Covid. Patient states that the nausea and dizziness is intermittent and nothing makes it worse or better. I have ordered labs, Covid and influenza a and B swab. Last Recorded V/S: Last Vital Signs Temp 98.4 F 07/06/20 18:14 Pulse 64 07/06/20 18:14 Resp 15 07/06/20 18:14 BP 124/79 07/06/20 18:14 Pulse Ox 100 07/06/20 18:14 - Orders/Labs/Meds Labs: Laboratory Tests 07/06/20 07/06/20 07/06/20 Range/Units 18:19 18:19 18:20 WBC (3.98-10.04) K/mm3 RBC (3.98-5.22) M/mm3 Hgb (11.2-15.7) gm/dl Hct (34.1-44.9) % MCV (79.4-94.8) fl MCH (25.6-32.2) pg MCHC (32.2-35.5) g/dl RDW Std Deviation (36.4-46.3) fL Plt Count (182-369) K/mm3 MPV (9.4-12.3) fl Neut % (Auto) (34.0-71.1) % Lymph % (Auto) (19.3-51.7) % Bertie % (Auto) (4.7-12.5) % Eos % (Auto) (0.7-5.8) Baso % (Auto) (0.1-1.2) % Neut # (Auto) (1.56-6.13) K/mm3 Lymph # (Auto) (1.18-3.74) K/mm3 Bertie # (Auto) (0.24-0.36) K/mm3 Eos # (Auto) (0.04-0.36) K/mm3 Baso # (Auto) (0.01-0.08) K/mm3 Sodium (136-145) mEq/L Potassium (3.5-5.1) mEq/L Chloride (98-107) mEq/L Carbon Dioxide (21-32) mEq/L Anion Gap (5-15) BUN (7-18) mg/dL Creatinine (0.55-1.02) mg/dL Est Cr Clr Drug Dosing mL/min Estimated GFR (MDRD) (>60) mL/min BUN/Creatinine Ratio (14-18) Glucose (74-106) mg/dL Calcium (8.5-10.1) mg/dL Magnesium (1.8-2.4) mg/dl Total Bilirubin (0.2-1.0) mg/dL AST (15-37) U/L ALT (14-59) U/L Alkaline Phosphatase (46-116) U/L Total Protein (6.4-8.2) g/dl Albumin (3.4-5.0) g/dl Globulin gm/dL Albumin/Globulin Ratio (1-2) Urine Color Yellow (Yellow) Urine Appearance Clear (Clear) Urine pH 6.5 (5.0-8.0) Ur Specific [place] 1.015 (1.005-1.030) Urine Protein Negative (Negative) Urine Glucose (UA) Negative (Negative) Urine Ketones Negative (Negative) Urine Occult Blood Negative (Negative) Urine Nitrite Negative (Negative) Urine Bilirubin Negative (Negative) Urine Urobilinogen 0.2 (0.2-1.0) Ur Leukocyte Esterase Negative (Negative) Urine HCG, Qual Negative (NEGATIVE) Influenza Type A RNA Negative (NEGATIVE) Influenza Type B RNA Negative (NEGATIVE) SARS-CoV-2 RNA (DARIAN) Negative (NEGATIVE) 07/06/20 07/06/20 Range/Units 18:44 18:44 WBC 10.36 H (3.98-10.04) K/mm3 RBC 4.80 (3.98-5.22) M/mm3 Hgb 13.5 (11.2-15.7) gm/dl Hct 42.3 (34.1-44.9) % MCV 88.1 (79.4-94.8) fl MCH 28.1 (25.6-32.2) pg MCHC 31.9 L (32.2-35.5) g/dl RDW Std Deviation 42.0 (36.4-46.3) fL Plt Count 334 (182-369) K/mm3 MPV 10.6 (9.4-12.3) fl Neut % (Auto) 66.3 (34.0-71.1) % Lymph % (Auto) 28.6 (19.3-51.7) % Bertie % (Auto) 4.5 L (4.7-12.5) % Eos % (Auto) 0.3 L (0.7-5.8) Baso % (Auto) 0.2 (0.1-1.2) % Neut # (Auto) 6.87 H (1.56-6.13) K/mm3 Lymph # (Auto) 2.96 (1.18-3.74) K/mm3 Bertie # (Auto) 0.47 H (0.24-0.36) K/mm3 Eos # (Auto) 0.03 L (0.04-0.36) K/mm3 Baso # (Auto) 0.02 (0.01-0.08) K/mm3 Sodium 140 (136-145) mEq/L Potassium 3.7 (3.5-5.1) mEq/L Chloride 102 (98-107) mEq/L Carbon Dioxide 27 (21-32) mEq/L Anion Gap 14.7 (5-15) BUN 10 (7-18) mg/dL Creatinine 1.0 (0.55-1.02) mg/dL Est Cr Clr Drug Dosing 77.38 mL/min Estimated GFR (MDRD) > 60 (>60) mL/min BUN/Creatinine Ratio 10.0 L (14-18) Glucose 90 (74-106) mg/dL Calcium 9.1 (8.5-10.1) mg/dL Magnesium 2.1 (1.8-2.4) mg/dl Total Bilirubin 0.3 (0.2-1.0) mg/dL AST 17 (15-37) U/L ALT 25 (14-59) U/L Alkaline Phosphatase 60 (46-116) U/L Total Protein 8.1 (6.4-8.2) g/dl Albumin 4.4 (3.4-5.0) g/dl Globulin 3.7 gm/dL Albumin/Globulin Ratio 1.2 (1-2) Urine Color (Yellow) Urine Appearance (Clear) Urine pH (5.0-8.0) Ur Specific [place] (1.005-1.030) Urine Protein (Negative) Urine Glucose (UA) (Negative) Urine Ketones (Negative) Urine Occult Blood (Negative) Urine Nitrite (Negative) Urine Bilirubin (Negative) Urine Urobilinogen (0.2-1.0) Ur Leukocyte Esterase (Negative) Urine HCG, Qual (NEGATIVE) Influenza Type A RNA (NEGATIVE) Influenza Type B RNA (NEGATIVE) SARS-CoV-2 RNA (DARIAN) (NEGATIVE) - Re-Assessments/Exams Free Text/Narrative Re-Assessment/Exam: 07/06/20 19:58 Hematology reveals a WBC of 10.36, hemoglobin 13.5, hematocrit 42.3, platelet count 334 chemistry reveals a sodium of 140, potassium 3.7, anion gap 14.7, BUN 10, creatinine 1.0, GFR greater than 60, glucose 90, magnesium 2.1, AST 17, ALT 25 Urinalysis is unremarkable urine is negative Serology reveals negative influenza type AB and negative Covid Departure - Departure Time of Disposition: 20:01 Disposition: Home, Self-Care 01 Condition: Good Clinical Impression: Nausea, Dizziness - Discharge Information Instructions: Nausea, Adult, [id number] Referrals: Landy Salvador MD [Primary Care Provider] - Forms: ED Department Discharge Additional Instructions: You were seen in the emergency department today with complaints of dizziness and nausea x1 week as well as a decreased appetite and intermittent hot flashes. Labs and urinalysis were completed as well as a urine test and these were all essentially unremarkable. At this time there is nothing acutely wrong. Recommend that you follow-up with your primary care physician this week for further evaluation if the symptoms continue. However, this could be due to viral illness and could potentially resolve on its own. Should your condition worsen or change, do not hesitate returning to the emergency department. Sepsis Event Note (ED) - Evaluation Sepsis Screening Result: No Definite Risk - Focused Exam Vital Signs: Vital Signs Temp Pulse Resp BP Pulse Ox 07/06/20 18:14 98.4 F 64 15 124/79 100
[2020-07-06 19:16] LABS: CORONAVIRUS COVID-19 NAA NEGATIVE (NEGATIVE)
== END 2020-07-06 20:20 | disposition home or self-care (01) ==
LOC: JD.ED 18:04
DX: R42 Dizziness and giddiness (principal); R11.0 Nausea; Z88.8 Allergy status to other drugs, medicaments and biological substances; Z72.0 Tobacco use; Z20.822 Contact with and (suspected) exposure to COVID-19
CPT/HCPCS: 0240U; 36415; 80053; 81003; 81025; 83735; 85025; 99284; 99283

== ENCOUNTER 2021-03-24 17:26 | Emergency (ER) | payer MEDICAID ==
[2021-03-24 17:51] VITALS: BP 117/61; PULSE 94
== END 2021-03-24 20:30 | disposition home or self-care (01) ==
LOC: JD.ED 17:26
DX: S80.862A Insect bite (nonvenomous), left lower leg, initial encounter (principal); Z88.8 Allergy status to other drugs, medicaments and biological substances; W57.XXXA Bitten or stung by nonvenomous insect and other nonvenomous arthropods, initial encounter
CPT/HCPCS: 36415; 84702; 99283

== ENCOUNTER 2021-06-10 16:10 | Emergency (ER) | payer MEDICAID ==
[2021-06-10 16:22] VITALS: BP 114/70; PULSE 95
== END 2021-06-10 18:58 | disposition home or self-care (01) ==
LOC: JD.ED 16:10
DX: L03.115 Cellulitis of right lower limb (principal); R19.00 Intra-abdominal and pelvic swelling, mass and lump, unspecified site
CPT/HCPCS: 76705; 76705-26; 99282-25; 99284

== ENCOUNTER → 2021-09-09 | Day surgery (SDC) | payer MEDICAID ==
[~2021-09-09] MED LIST: Albuterol 0.083% 2.5 MG/3 ML Neb Soln NEB PRN; Bupivacaine 0.5%/EPINEPHrine 1:200,000 50 ML MDV ONE; Dexamethasone 4 MG/ML 5 ML MDV ONE; HYDROmorphone 0.5 MG/0.5 ML Syringe IVPUSH PRN; HYDROmorphone 0.5 MG/0.5 ML Syringe ONE; Ketorolac 30 MG/ML SDV ONE; Lactated Ringers 1,000 ML IV SCH; Lactated Ringers 1,000 ML ONE; Lidocaine 1% 6 ML ONE; Lidocaine 1%/Sod Bicarbonate in NS 8.4% 1 ML Syringe IDERM PRN; Midazolam 1 MG/ML 2 ML SDV IVPUSH PRN; Midazolam 1 MG/ML 2 ML SDV ONE; Ondansetron 4 MG/2 ML SDV IVPUSH PRN; Ondansetron 4 MG/2 ML SDV ONE; Phenylephrine 1% 10 MG/ML SDV IVPUSH PRN; Phenylephrine 1% 10 MG/ML SDV ONE; Propofol 200 MG/20 ML SDV ONE; Rocuronium 50 MG/5 ML Vial ONE; Sodium Chloride 0.9% 10 ML Syringe FLUSH PRN; Sodium Chloride 0.9% 10 ML Syringe FLUSH SCH; Sugammadex Sodium 200 MG/2 ML VIAL ONE; ceFAZolin 2 GM Vial ONE; diphenhydrAMINE 50 MG/ML SDV IVPUSH PRN; ePHEDrine 50 MG/ML SDV IVPUSH PRN; ePHEDrine 50 MG/ML SDV ONE; fentaNYL 100 MCG/2 ML SDV IVPUSH PRN; fentaNYL 250 MCG/5 ML SDV ONE; oxyCODONE 5 MG Tab PO ONE
[2021-09-09 18:33] VITALS: BP 118/68; PULSE 76
== END | disposition home or self-care (01) ==
LOC: JD.SDS 08:00
PROVIDERS: ATTEND Surgery
DX: K80.20 Calculus of gallbladder without cholecystitis without obstruction (principal); F41.9 Anxiety disorder, unspecified; N76.0 Acute vaginitis; B96.89 Other specified bacterial agents as the cause of diseases classified elsewhere; R05.9 Cough, unspecified; Z88.8 Allergy status to other drugs, medicaments and biological substances; Z98.890 Other specified postprocedural states
CPT/HCPCS: 47562; 81025; A9270; J0690; J1100; J1170; J1885; J2250; J2405; J2704; J3010; J3490; J7120; 00790; J2370

== ENCOUNTER 2021-12-01 15:19 | Emergency (ER) | payer MEDICAID ==
[2021-12-24 12:53] VITALS: BP 113/81; PULSE 82
[2021-12-29 19:40] LABS: ESTIMATED GFR 104 mL/min (>60)
== END 2021-12-01 20:11 | disposition home or self-care (01) ==
LOC: JD.ED 15:19
DX: N83.291 Other ovarian cyst, right side (principal)
CPT/HCPCS: 36415; 74177; 74177-26; 80053; 81003; 83735; 84703; 85025; 86140; 99284

== ENCOUNTER 2022-02-26 15:44 | Emergency (ER) | payer MEDICAID ==
[2022-02-26 20:14] VITALS: BP 96/55; PULSE 67
== END 2022-02-26 20:15 | disposition home or self-care (01) ==
LOC: JD.ED 15:44
DX: O99.891 Other specified diseases and conditions complicating pregnancy (principal); R10.30 Lower abdominal pain, unspecified; Z88.8 Allergy status to other drugs, medicaments and biological substances; Z3A.16 16 weeks gestation of pregnancy
CPT/HCPCS: 76815; 76815-26; 81001; 99284

== ENCOUNTER 2022-03-02 11:29 | Emergency (ER) | payer MEDICAID ==
[2022-03-02] MEDS ORDERED: Ondansetron 4 MG/2 ML SDV IVPUSH ONE (12:38)
[2022-03-02] MEDS ORDERED: Sodium Chloride 0.9% 10 ML Syringe FLUSH PRN (12:38)
[2022-03-02] MEDS ORDERED: Sodium Chloride 0.9% 1,000 ML IV STA (12:38)
[2022-03-02 12:45] LABS: CORONAVIRUS COVID-19 NAA NEGATIVE (NEGATIVE)
[2022-03-02 13:30] LABS: ESTIMATED GFR 127 mL/min (>60)
[2022-03-02 16:35] VITALS: BP 100/55; PULSE 80
== END 2022-03-02 15:35 | disposition home or self-care (01) ==
LOC: JD.ED 11:29
DX: J10.1 Influenza due to other identified influenza virus with other respiratory manifestations (principal); Z88.8 Allergy status to other drugs, medicaments and biological substances; Z20.822 Contact with and (suspected) exposure to COVID-19
CPT/HCPCS: 0241U; 36415; 80053; 85025; 96361; 96374; 99284; J2405; J7030